=== PATIENT | male | born 1990 | race Caucasian/White ===

== ENCOUNTER → 2022-04-17 15:55 | Outpatient (CLI) | payer OTHER, SELFPAY ==
--- NOTE | 2022-04-17 15:57 | DI.MRI.S_ITS ---
PROCEDURE: MR KNEE LT WO CON INDICATIONS: Left Knee pain TECHNIQUE: Noncontrast sagittal PD fast spin echo and T2 fast spin echo with fat saturation, sagittal 3-D FLASH with fat saturation; coronal T1 spin echo and PD fast spin echo with fat saturation, and axial PD fast spin echo with fat saturation through the knee. COMPARISON: None. FINDINGS: Image quality: Excellent. Anterior Cruciate Ligament: Intact. Posterior Cruciate Ligament: Intact. Medial Collateral Ligament: Intact. Lateral Collateral Ligament: Intact. Medial Meniscus: Intact. Lateral Meniscus: Intact. Medial and Lateral Tendons: The semimembranosus tendon insertions and meniscocapsular junction appear intact. Visualized portions of the pes anserinus tendons appear normal. No abnormal bursal fluid. The long and short heads of the biceps femoris tendon appear intact. The popliteus tendon appears intact. No signs of posterolateral corner injury. Iliotibial band appears normal. Anterior Structures: Small enthesophyte is seen at the distal quadriceps tendon insertion. Mild distal patellar tendinosis. No femoral trochlear dysplasia or ventral trochlear prominence. No edema in the infrapatellar fat pad. Bones: No acute trabecular bone injury or fracture. Medial Femorotibial Cartilage: Intact. Lateral Femorotibial Cartilage: Intact. Patellofemoral Cartilage: Intact. Soft Tissues: There is a small joint effusion. No medial popliteal cyst. The musculature surrounding the knee is normal in bulk. Mild nonspecific subcutaneous soft tissue edema is seen at the anterior medial aspect of the knee. IMPRESSION: 1. No discrete meniscal tear. Cruciate and collateral ligaments are intact. There is no acute trabecular bone injury. 2. Mild distal patellar tendinosis. 3. Small joint effusion. Dictated by: Kvng Ocasio M.D. on 04/20/2022 at 8:42 Approved by: Kvng Ocasio M.D. on 04/20/2022 at 8:49
== END ==
PROVIDERS: Referring Provider Physician Assistant; Visit Provider Physician Assistant
DX: M25.562 Pain in left knee (principal); M25.462 Effusion, left knee
CPT/HCPCS: 73721

== ENCOUNTER 2022-05-06 10:21 | Emergency (ER) | payer OTHER, SELFPAY ==
[2022-05-06 11:11] VITALS: BP 130/86; PULSE 71; RESP 14; TEMP 36.3; O2SAT 99; BMI 39.9
[2022-05-06 11:45] LABS: Add Manual Diff / Slide Review NO; Basophils Absolute Auto 0 /uL (0-100); Basophils Percent Auto 0.5 % (0-2); Eosinophils Absolute Auto 100 /uL (0-450); Eosinophils Percent Auto 0.9 % (2-4); Hematocrit 41.9 % (41-53); Hemoglobin 14.3 g/dL (13.5-17.5); Lymphocytes Absolute Auto 1500 /uL (1100-4500); Lymphocytes Percent Auto 24.8 % (25-40); Mean Corpuscular HGB Conc 34.1 % (30-36); Mean Corpuscular Hemoglobin 28.1 PG (26-34); Mean Corpuscular Volume 82.3 fL (80-100); Monocytes Absolute Auto 500 /uL (0-900); Monocytes Percent Auto 8.6 % (3-14); Neutrophils Absolute Auto 3900 /uL (1500-7000); Neutrophils Percent Auto 65.2 % (50-75); Platelet Count 133 X10^3/uL (150-400); Red Blood Cell Count 5.09 X10^6/uL (4.5-5.9); White Blood Cell Count 6.1 X10^3/uL (4.5-11.0)
[2022-05-06 12:01] LABS: Alanine Aminotransferase 31 IU/L (<50); Albumin 4.5 g/dL (3.5-5.0); Albumin Globulin Ratio 1.2 (1.0-2.8); Alkaline Phosphatase 61 U/L (38-126); Aspartate Aminotransferase 30 IU/L (17-59); BUN Creatinine Ratio 17.4 (6-22); Bilirubin Total 0.7 mg/dL (0.2-1.3); Blood Urea Nitrogen 16 mg/dL (9-20); Calcium 9.4 mg/dL (8.4-10.2); Carbon Dioxide 27 mmol/L (22-32); Chloride 103 mmol/L (98-107); Estimated Glomerular Filt Rate > 60 mL/min (>60); Globulin 3.7 g/dL (1.7-4.1); Glucose 88 mg/dL (70-100); HEMOLYSIS 22 (0-50); Lipase 121 U/L (23-300); Potassium 4.6 mmol/L (3.4-5.1); Sodium 139 mmol/L (137-145); Total Protein 8.2 g/dL (6.3-8.2)
[2022-05-06 13:08] VITALS: BP 126/76; PULSE 80; O2SAT 98
--- NOTE | 2022-05-06 13:15 | DI.US.S_ITS ---
PROCEDURE: US ABDOMEN LIMITED INDICATIONS: RUQ pain TECHNIQUE: Real-time focused scanning was performed of the abdomen, with image documentation. COMPARISON: None. FINDINGS: Exam limited by patient body habitus. Normal hepatic parenchymal echogenicity and echotexture. No focal hepatic mass. No intrahepatic or extrahepatic biliary ductal dilatation. Normally distended gallbladder with no wall thickening or pericholecystic fluid. No shadowing gallstone or sludge identified. Pancreas obscured by bowel gas. IMPRESSION: Pancreas not visualized. Otherwise within normal limits. Dictated by: Sathish Barrientos M.D. on 05/06/2022 at 13:56 Approved by: Sathish Barrientos M.D. on 05/06/2022 at 13:57
--- NOTE | 2022-05-06 13:54 | ED_ITS ---
HPI - Abdominal Pain General Chief Complaint: Abdominal Pain Stated Complaint: bad abdominal pain Time Seen by Provider: 05/06/22 12:58 Source: patient Mode of arrival: Ambulatory History of Present Illness HPI narrative: This is a 32-year-old male who presents to the emergency department without significant medical history who presents to the emergency department complaining of right upper quadrant pain which he states started yesterday and was significantly tender this morning. He states he has not been able to eat food today due to his right upper quadrant pain, states his mother had a cholecystectomy recently. Patient sees the 10 it come [place], states that he feels nauseated and tender to the right upper quadrant. Endorses recent high fat meals. Denies any abdominal surgical history in the past. Denies taking any medication or having any allergies. Related Data Previous Rx's Medication Instructions Recorded amoxicillin 875 mg-potassium 1 tab PO BID 5 days #10 tabs 05/06/22 clavulanate 125 mg tablet Allergies Allergy/AdvReac Type Severity Reaction Status Date / Time No Known Drug Allergies Allergy Verified 05/06/22 11:10 Review of Systems Review of Systems Narrative: Review of systems is negative for acute abnormalities unless otherwise noted in HPI Patient History Social History Smoking Status: Unknown if ever smoked Smoking Status: Unknown if ever smoked alcohol intake frequency: holidays/special occasions only Substance Use Type: does not use Exam Narrative Exam Narrative: Reviewed vitals signs and nursing notes. General: cooperative, comfortable, in no acute distress, well groomed HEENT: symmetrical facial expressions, moist mucous membranes Cardiovascular: regular rate and rhythm, no peripheral edema, warm extremities Respiratory: normal effort, able to speak in complete sentences, without wheezing, stridor, or abnormal breath sounds. No retractions or tachypnea. GI: abdomen soft, right upper quadrant tenderness, denies distention currently, states last night it was mildly distended here, abdomen is without masses, rebound tenderness or exquisite tenderness with exam. Without CVA tenderness bilaterally MSK: moves all extremities, neurovascularly intact, no weakness, normal tone Skin: brisk capillary refill, without pallor or erythema Neuro: normal speech and cognition, A&O x3, ambulatory, clear speech Psych: mental status is grossly normal, congruent mood, normal affect, pleasant and cooperative Initial Vital Signs Initial Vital Signs: Vital Signs Temperature 97.4 F L 05/06/22 11:11 Pulse Rate 71 05/06/22 11:11 Respiratory Rate 14 05/06/22 11:11 Blood Pressure 130/86 05/06/22 11:11 Pulse Oximetry 99 05/06/22 11:11 Oxygen Delivery Method 05/06/22 11:11 Course Orders Ordered: ED Orders 05/06/22 11:20 EKG-12 Lead Stat 05/06/22 11:28 Complete Blood Count AUTO DIFF Stat Comprehensive Metabolic Panel Stat Lipase Stat 05/06/22 13:15 US abdomen limited Stat 05/06/22 14:48 CT abdomen pelvis w con Stat 05/06/22 15:21 UA dip and micro [Urinalysis and Microscopic] Stat Urine Culture Stat Discontinued Medications Amoxicillin/Clavulanate Potassium (Amoxicillin/Clav 875/125 Mg) 1 tab PO NOW ONE Stop: 05/06/22 15:57 Last Admin: 05/06/22 16:01 Dose: 1 tab Documented By: CRISTAL Ketorolac Tromethamine (Ketorolac 30 Mg/Ml Vial) 15 mg IV NOW ONE Stop: 05/06/22 14:53 Last Admin: 05/06/22 15:19 Dose: 15 mg Documented By: YUE Ondansetron HCl (Ondansetron 4 Mg/2 Ml Inj) 4 mg IV NOW ONE Stop: 05/06/22 14:53 Last Admin: 05/06/22 15:19 Dose: Not Given Documented By: YUE Vital Signs Vital signs: Vital Signs - 8 hr 05/06/22 11:11 05/06/22 13:08 05/06/22 16:10 Temperature 97.4 F L Pulse Rate 71 80 73 Respiratory Rate 14 16 Blood Pressure 130/86 126/76 123/72 Pulse Oximetry 99 98 100 Oxygen Delivery Method Room Air Room Air MDM - Abdominal Pain Lab Data Result diagrams: 05/06/22 11:28 05/06/22 11:28 Labs: Lab Results 05/06/22 05/06/22 05/06/22 Range/Units 11:28 11:28 15:21 WBC 6.1 (4.5-11.0) X10^3/uL RBC 5.09 (4.5-5.9) X10^6/uL Hgb 14.3 (13.5-17.5) g/dL Hct 41.9 (41-53) % MCV 82.3 (80-100) fL MCH 28.1 (26-34) PG MCHC 34.1 (30-36) % RDW 14.0 (11.6-14.8) % Plt Count 133 L (150-400) X10^3/uL Neut % (Auto) 65.2 (50-75) % Lymph % (Auto) 24.8 L (25-40) % [place] % (Auto) 8.6 (3-14) % Eos % (Auto) 0.9 L (2-4) % Baso % (Auto) 0.5 (0-2) % Neut # (Auto) 3900 (3440-3817) /uL Lymph # (Auto) 1500 (6890-4530) /uL [place] # (Auto) 500 (0-900) /uL Eos # (Auto) 100 (0-450) /uL Baso # (Auto) 0 (0-100) /uL Sodium 139 (137-145) mmol/L Potassium 4.6 (3.4-5.1) mmol/L Chloride 103 (98-107) mmol/L Carbon Dioxide 27 (22-32) mmol/L BUN 16 (9-20) mg/dL Creatinine 0.92 (0.66-1.25) mg/dL Estimated GFR > 60 (>60) mL/min BUN/Creatinine Ratio 17.4 (6-22) Glucose 88 (70-100) mg/dL Calcium 9.4 (8.4-10.2) mg/dL Total Bilirubin 0.7 (0.2-1.3) mg/dL AST 30 (17-59) IU/L ALT 31 (<50) IU/L Alkaline Phosphatase 61 (38-126) U/L Total Protein 8.2 (6.3-8.2) g/dL Albumin 4.5 (3.5-5.0) g/dL Globulin 3.7 (1.7-4.1) g/dL Albumin/Globulin Ratio 1.2 (1.0-2.8) Lipase 121 (23-300) U/L Urine Color Yellow Urine Appearance Clear Urine pH 6.5 (4.5-8.0) Ur Specific Shelly 1.015 (1.000-1.035) Urine Protein Negative (Negative) Urine Glucose (UA) Negative (Negative) g/dL Urine Ketones Negative (NEGATIVE) Urine Occult Blood Negative (Negative) Urine Nitrate Negative (Negative) Urine Bilirubin Negative (NEGATIVE) Urine Urobilinogen 0.2 (0.2) E.U./dL Ur Leukocyte Esterase Negative (NEGATIVE) Urine RBC None seen (0-5/HPF) Urine WBC 5-10/hpf H (0-5/HPF) Amorphous Sediment 1+ Urine Bacteria None seen (None) Urine Mucus 2+ H (Negative) Ur Culture Indicated? Specimen cultured Imaging Data US - abdomen: Radiologist's Impression: PROCEDURE: US ABDOMEN LIMITED ? INDICATIONS:? RUQ pain ? TECHNIQUE:? Real-time focused scanning was performed of the abdomen, with image documentation.? ? COMPARISON:? None. ? FINDINGS:? Exam limited by patient body habitus.? Normal hepatic parenchymal echogenicity and echotexture.? No focal hepatic mass.? No intrahepatic or extrahepatic biliary ductal dilatation.? Normally distended gallbladder with no wall thickening or pericholecystic fluid.? No shadowing gallstone or sludge identified.? Pancreas obscured by bowel gas. ? IMPRESSION:? Pancreas not visualized.? Otherwise within normal limits.? ? Dictated by: Sathish Barrientos M.D. on 05/06/2022 at 13:56 ? ? Approved by: Sathish Barrientos M.D. on 05/06/2022 at 13:57 ? CT scan - abdomen/pelvis: Radiologist's Impression: PROCEDURE:? CT ABDOMEN PELVIS W CON ? INDICATIONS:? RUQ pain, constipated, sharp pain ? TECHNIQUE:? After the administration of intravenous contrast, axial sections acquired from the lung bases to the pubic symphysis.? Coronal and sagittal reformats were performed.? For radiation dose reduction, the following was used:? automated exposure control, adjustment of mA and/or kV according to patient size.? ? COMPARISON:? None. ? FINDINGS:? Image quality:? Excellent.? ? Lung bases:? Unremarkable. Heart:? No significant findings. ? ABDOMEN: Liver:? Liver is normal in size.? Moderate hepatic steatosis is seen.? No discrete hepatic lesion. ? Gallbladder:? Gallbladder is within normal limits. Biliary ducts:? Unremarkable.? ? Pancreas:? Pancreas show normal enhancement.? Peripancreatic inflammatory changes adjacent to pancreatic tail is noted.? No peripancreatic fluid collection. Spleen:? There is splenomegaly, no discrete splenic lesion..? ? Adrenal Glands:? Unremarkable.? ? Kidneys and Ureters:? Unremarkable.? ? ? Stomach and Bowel:? Stomach, small bowel loops, and colon are unremarkable.? Appendix is visualized and is within normal limits. Peritoneum:? No abnormal intraperitoneal fluid.? No free air.? ? Ventral Wall: ? No hernias.? Abdominal Nodes:? No retroperitoneal or mesenteric adenopathy by size criteria.? Vessels:? Aorta and inferior vena cava are normal in size.? ? PELVIS: Pelvic Organs:? Unremarkable.? ? Bladder:? Unremarkable.? ? Pelvic Nodes: No enlarged lymph nodes.? Miscellaneous: No hernias are seen. ? ? ? Bones:? No suspicious bony lesion.? No acute vertebral body compression fracture. ? ? IMPRESSION:? 1. Inflammatory changes adjacent to pancreatic tail suggest clinical correlation for acute pancreatitis.? No pseudocyst formation. ? 2. Hepatic steatosis, no discrete hepatic lesion.? No biliary ductal dilatation.? No ? 3. Splenomegaly, no discrete splenic lesion. ? 4. No bowel obstruction or abnormal bowel wall thickening.? Normal appendix.? No free fluid or free air.? ? Dictated by: Jamie Castaneda M.D. on 05/06/2022 at 15:17 ? ? Approved by: Jamie Castaneda M.D. on 05/06/2022 at 15:20 ? [facility] Narrative Medical decision making narrative: This is a 32-year-old male without medical history presents to the emergency department for 2 days of right upper quadrant tenderness. Lab work is without leukocytosis or anemia, mild thrombocytopenia with a platelet count of 133 without priors to compare to, no electrolyte abnormalities, creatinine 0.92, no elevated liver enzymes or total bilirubin, lipase is 121. Abdominal ultrasound was limited by body habitus, without pancreas not visualized normally distended gallbladder without wall thickening pericholecystic fluid. Labs overall without any significant findings. CT abdomen is positive for inflammatory changes adjacent to the pancreatic tail suggesting acute pancreatitis without pseudocyst formation. His lipase was 121, his pain remains, he was given 15 mg of IV Toradol. Secondary impression shows hepatic steatosis without hepatic lesion, without biliary ductal dilatation, without splenomegaly or discrete splenic lesion, no bowel obstruction or abnormal bowel wall thickening, normal appendix, no free air or if he fluid. Discuss his findings with the patient, his history is suggest that he has had high fat meals recently and his pain and nausea had improved with NPO diet today. [facility], encouraged a clear liquid diet for the next 24-48 hours, NSAIDs. Patient is appropriate and amenable to discharge home. Vital signs are stable on repeat examination is unremarkable. Patient has been informed of results. Patient has been given strict return to ER precautions for any new or worsening symptoms. Patient understands to follow up closely with outpatient providers as instructed. Patient understands plan and agrees to discharge home. All questions and concerns answered at this time. Discharge Plan Departure Patient Disposition: Home Clinical Impression: Abdominal pain, RUQ, Fatty liver Acute pancreatitis Qualifiers: Pancreatitis type: unspecified pancreatitis type Acute pancreatitis compli cation: unspecified Qualified Code(s): K85.90 - Acute pancreatitis without necrosis or infection, unspecified Low back pain Qualifiers: Chronicity: acute Back pain laterality: bilateral Sciatica presence: without sciatica Qualified Code(s): M54.50 - Low back pain, unspecified Instructions: Acute Pancreatitis Activity Restrictions/Additional Instructions: *You have been diagnosed with pancreatitis. There is no infectious pocket of fluid so this should get better with anti-inflammatories, hydration, and a gradual return to diet. Please eat low-fat foods, avoid any fatty foods for the next 2 days, start with a clear liquid diet. Take ibuprofen 800 mg with food and water every 8 hours starting tomorrow night if your pain is bad again or tomorrow. You can take Tylenol 975 mg every 8 hours with this as needed. I hope you feel better soon, please follow-up with [facility] prior to returning to duty for resolution of this. If your pain gets worse or if you started vomiting, please return to the emergency department for another evaluation. *What to do: *Please continue to take your regular medications as directed. [ ] New medication prescriptions sent to your pharmacy: [ DOD] [ ] New medication written as a paper prescription [ x] No new medications given *Please follow up with your primary care provider in 2-3 days, call for an appointment. Let them know you were seen in the Emergency Department and that we asked that you be seen for follow-up. We will electronically transmit a record of today's note if your PCP is in our system *If you do not have a primary care provider please contact [phone] to establish care with one of the [facility] primary care providers. *Return to Emergency Department if you should have any new, worsening, or neftali rning symptoms, such as [fever greater than 101F, chills, worsening pain, persistent vomiting or other bothersome symptoms]. Prescriptions: New amoxicillin-pot clavulanate 875-125 mg tablet 1 tab PO BID 5 Days Qty: 10 0RF Referrals: ProviderRhona [Primary Care Provider] - Visit Report Forms: Patient Portal/API
--- NOTE | 2022-05-06 14:48 | DI.CT.S_ITS ---
PROCEDURE: CT ABDOMEN PELVIS W CON INDICATIONS: RUQ pain, constipated, sharp pain TECHNIQUE: After the administration of intravenous contrast, axial sections acquired from the lung bases to the pubic symphysis. Coronal and sagittal reformats were performed. For radiation dose reduction, the following was used: automated exposure control, adjustment of mA and/or kV according to patient size. COMPARISON: None. FINDINGS: Image quality: Excellent. Lung bases: Unremarkable. Heart: No significant findings. ABDOMEN: Liver: Liver is normal in size. Moderate hepatic steatosis is seen. No discrete hepatic lesion. Gallbladder: Gallbladder is within normal limits. Biliary ducts: Unremarkable. Pancreas: Pancreas show normal enhancement. Peripancreatic inflammatory changes adjacent to pancreatic tail is noted. No peripancreatic fluid collection. Spleen: There is splenomegaly, no discrete splenic lesion.. Adrenal Glands: Unremarkable. Kidneys and Ureters: Unremarkable. Stomach and Bowel: Stomach, small bowel loops, and colon are unremarkable. Appendix is visualized and is within normal limits. Peritoneum: No abnormal intraperitoneal fluid. No free air. Ventral Wall: No hernias. Abdominal Nodes: No retroperitoneal or mesenteric adenopathy by size criteria. Vessels: Aorta and inferior vena cava are normal in size. PELVIS: Pelvic Organs: Unremarkable. Bladder: Unremarkable. Pelvic Nodes: No enlarged lymph nodes. Miscellaneous: No hernias are seen. Bones: No suspicious bony lesion. No acute vertebral body compression fracture. IMPRESSION: 1. Inflammatory changes adjacent to pancreatic tail suggest clinical correlation for acute pancreatitis. No pseudocyst formation. 2. Hepatic steatosis, no discrete hepatic lesion. No biliary ductal dilatation. No 3. Splenomegaly, no discrete splenic lesion. 4. No bowel obstruction or abnormal bowel wall thickening. Normal appendix. No free fluid or free air. Dictated by: Jamie Castaneda M.D. on 05/06/2022 at 15:17 Approved by: Jamie Castaneda M.D. on 05/06/2022 at 15:20
[2022-05-06] MEDS: KETOROLAC 30 MG/ML VIAL 15 MG IV (15:19)
[2022-05-06 15:47] LABS: Appearance Urine UA CLEAR; Bilirubin Urine UA NEGATIVE (NEGATIVE); Color Urine UA YELLOW; Glucose Urine UA NEGATIVE (Negative); Ketones Urine UA NEGATIVE (NEGATIVE); Leukocyte Esterase Urine UA NEGATIVE (NEGATIVE); Nitrite Urine UA NEGATIVE (Negative); Occult Blood Urine UA NEGATIVE (Negative); Protein Urine UA NEGATIVE (Negative); Specific Gravity Urine UA 1.015 (1.000-1.035); Urobilinogen Urine UA 0.2 E.U./dL (0.2); pH Urine UA 6.5 (4.5-8.0)
[2022-05-06 15:50] LABS: Amorphous Sediment Urine 1+; RBC Urine None Seen (0-5/HPF); WBC Urine 5-10/HPF (0-5/HPF)
[2022-05-06 15:51] LABS: Bacteria Urine None Seen; Culture Indicated Urine Specimen Cultured; Mucus Urine 2+ (Negative)
[2022-05-06] MEDS: AMOXICILLIN/CLAV 875/125 MG 1 TAB PO (16:01)
[2022-05-06 16:10] VITALS: BP 123/72; PULSE 73; RESP 16; O2SAT 100
== END 2022-05-06 16:12 | disposition home or self-care (01) ==
PROVIDERS: Emergency Medicine; Emergency Provider Nurse Practitioner Critical Care Medicine
DX: K85.90 Acute pancreatitis without necrosis or infection, unspecified (principal); R10.11 Right upper quadrant pain; K76.0 Fatty (change of) liver, not elsewhere classified; M54.50 Low back pain, unspecified
CPT/HCPCS: 36415; 74177; 76705; 80053; 81001; 83690; 85025; 87086; 93005; 96374; 99284; J1885

== ENCOUNTER 2022-08-22 11:57 | Emergency (ER) | payer OTHER, SELFPAY ==
[2022-08-22] VITALS (17 sets, daily range): BP systolic 119–149; BP diastolic 62–98; PULSE 79–100; RESP 15–28; TEMP 36.7; O2SAT 89–100; BMI 41.3
[2022-08-22 12:16] LABS: Add Manual Diff / Slide Review NO; Basophils Absolute Auto 0 /uL (0-100); Basophils Percent Auto 0.8 % (0-2); Eosinophils Absolute Auto 100 /uL (0-450); Eosinophils Percent Auto 1.1 % (2-4); Hematocrit 41.4 % (41-53); Hemoglobin 14.5 g/dL (13.5-17.5); Lymphocytes Absolute Auto 1100 /uL (1100-4500); Lymphocytes Percent Auto 18.5 % (25-40); Mean Corpuscular Hemoglobin 28.2 PG (26-34); Mean Corpuscular Volume 80.6 fL (80-100); Monocytes Absolute Auto 400 /uL (0-900); Monocytes Percent Auto 6.9 % (3-14); Neutrophils Absolute Auto 4300 /uL (1500-7000); Neutrophils Percent Auto 72.7 % (50-75); Platelet Count 125 X10^3/uL (150-400); Red Blood Cell Count 5.13 X10^6/uL (4.5-5.9); Red Cell Distribution Width 15.2 % (11.6-14.8)
[2022-08-22 12:22] LABS: INR 1.1 (0.9-1.3); Prothrombin Time 12.9 SECONDS (10.1-12.7)
--- NOTE | 2022-08-22 12:23 | DI.RAD.S_ITS ---
PROCEDURE: XR CHEST 1V INDICATIONS: chest pain TECHNIQUE: One view of the chest was acquired. COMPARISON: None. FINDINGS: Surgical changes and devices: None. Lungs and pleura: Lungs are clear. No pleural effusions or pneumothorax. Mediastinum: Mediastinal contours appear normal. Heart size is normal. Bones and chest wall: No suspicious bony lesions. Overlying soft tissues appear unremarkable. IMPRESSION: No acute cardiopulmonary pathology. Dictated by: Jamie Castaneda M.D. on 08/22/2022 at 13:35 Approved by: Jamie Castaneda M.D. on 08/22/2022 at 13:36
[2022-08-22 12:28] LABS: Alanine Aminotransferase 33 IU/L (<50); Albumin 4.8 g/dL (3.5-5.0); Albumin Globulin Ratio 1.4 (1.0-2.8); Alkaline Phosphatase 72 U/L (38-126); Aspartate Aminotransferase 28 IU/L (17-59); BUN Creatinine Ratio 16.7 (6-22); Bilirubin Total 0.6 mg/dL (0.2-1.3); Blood Urea Nitrogen 17 mg/dL (9-20); Calcium 9.3 mg/dL (8.4-10.2); Carbon Dioxide 27 mmol/L (22-32); Chloride 100 mmol/L (98-107); Estimated Glomerular Filt Rate > 60 mL/min (>60); Globulin 3.5 g/dL (1.7-4.1); Glucose 97 mg/dL (70-100); HEMOLYSIS < 15 (0-50); Lipase 110 U/L (23-300); Potassium 4.3 mmol/L (3.4-5.1); Sodium 139 mmol/L (137-145); Total Protein 8.3 g/dL (6.3-8.2)
[2022-08-22] MEDS: SODIUM CHLORIDE 0.9% 1,000 ML 150 ML IV (12:30)
--- NOTE | 2022-08-22 12:31 | DI.CT.S_ITS ---
PROCEDURE: CT ABDOMEN PELVIS W CON INDICATIONS: upper abd pain/tender R, L, epigastric, Hx pancreatitis TECHNIQUE: After the administration of intravenous contrast, axial sections acquired from the lung bases to the pubic symphysis. Coronal and sagittal reformats were performed. For radiation dose reduction, the following was used: automated exposure control, adjustment of mA and/or kV according to patient size. COMPARISON: [facility], CT, CT ABDOMEN PELVIS W CON, 05/06/2022, 14:53. FINDINGS: Image quality: Excellent. Lung bases: Unremarkable. Heart: No significant findings. ABDOMEN: Liver: Liver is normal in size. Moderate hepatic steatosis is seen. No discrete hepatic lesion.. Gallbladder: Within normal limits. Biliary ducts: Unremarkable. Pancreas: Pancreas is normal in size. Mild peripancreatic inflammatory changes are again noted adjacent to tail of pancreas with subtle hypodense area involving pancreatic tail and may represent a small pancreatic cyst. No peripancreatic fluid collection.. Spleen: There is splenomegaly, no discrete splenic lesion.. Adrenal Glands: Unremarkable. Kidneys and Ureters: Unremarkable. Stomach and Bowel: There is no bowel obstruction. No gastric or small bowel wall thickening. Diffuse colonic wall thickening is seen particularly involving ascending colon and transverse colon. There is marrow Mon[place] the lumen. No significant pericolonic fat stranding. Appendix is visualized and is within normal limits. No abscess collection. Peritoneum: No abnormal intraperitoneal fluid. No free air. Ventral Wall: No hernias. Abdominal Nodes: No retroperitoneal or mesenteric adenopathy by size criteria. Vessels: Aorta and inferior vena cava are normal in size. PELVIS: Pelvic Organs: Unremarkable. Bladder: Unremarkable. Pelvic Nodes: No enlarged lymph nodes. Miscellaneous: No hernias are seen. Bones: No suspicious bony lesions. No acute vertebral body compression fracture. IMPRESSION: 1. Questionable mild peripancreatic inflammatory changes adjacent to pancreatic tail region with possible tiny pancreatic tail cyst. No discrete peripancreatic fluid collection. 2. Diffuse colonic wall thickening on the current study which may be due to under distension. Infectious inflammatory colitis cannot be excluded suggest clinical correlation. No bowel obstruction. No free fluid or free air. 3. Hepatic steatosis, no discrete hepatic lesion. Splenomegaly unchanged from prior study. Dictated by: Jamie Castaneda M.D. on 08/22/2022 at 13:31 Approved by: Jamie Castaneda M.D. on 08/22/2022 at 13:35
[2022-08-22] MEDS: ONDANSETRON 4 MG/2 ML INJ IV ×2 (12:32→15:23)
[2022-08-22] MEDS: fentaNYL 100 MCG/2 ML INJ 50 MCG IV ×2 (12:32→14:08)
[2022-08-22 12:37] LABS: Creatine Kinase 105 U/L (55-170)
--- NOTE | 2022-08-22 12:37 | ED_ITS ---
HPI - Abdominal Pain <Alexandrea Lancaster PA-C - Last Filed: 08/22/22 19:21> General Chief Complaint: Abdominal Pain Stated Complaint: Abd pain since this morning Time Seen by Provider: 08/22/22 12:04 History of Present Illness HPI narrative: 32 Year old male presents with concern for abdominal pain since around 5:00 a.m. this morning. Patient states that this generally feels similar to his episode in May where his pancreas was found to be slightly inflamed but he says this is ?worse?. He states he has been in 6 to 8/10 pain all morning since he got up he has been feeling nauseous and when he tries to drink water it makes him nauseous. He has not vomited but he is had multiple episodes of diarrhea that was watery and oily. He states that he was on the toilet for about 2 hours this morning with this. He says his pain is in a band across the top of his belly but it hurts more on the left/middle than anywhere else. Does not radiate to his back or anywhere else. Patient also notes that where he used to have intermittent issues with reflux over the past few weeks it has been a lot worse for him and he is having burning-type epigastric pain and pain in his chest after eating and drinking, for the last few weeks he has been sleeping propped up on pillows because if he lays flat it makes a reflux worse. He is not taken anything for this except Pepto-Bismol. He denies shortness of breath but says he has been having to regulate his breathing and focus on his breathing to control his pain. He does state that he has been having persistent problems with oily stool for the last few months and certain foods seem to make things worse so he has been changing his diet to try to adjust things. Uses Pepto- Bismol on a regular basis for abdominal discomfort and it works sometimes and does not work other times. Patient states he does not drink alcohol, the only medication he takes on a regular basis as Pepto-Bismol. He is not been taking [id number] pain meds. Denies persistent chest pain, vomiting, dizziness, palpitations, blood in his stool, mucus in his stool or any other symptoms. Related Data Previous Rx's Medication Instructions Recorded hydrocodone 5 mg-acetaminophen 325 1 tab PO Q6H PRN pain, pancreatic 08/22/22 mg tablet cyst 3 days #12 tabs omeprazole 20 mg capsule,delayed 20 mg PO DAILY #14 caps 08/22/22 release ondansetron 4 mg disintegrating 4 mg PO Q8H PRN nausea and 08/22/22 tablet vomiting 10 days #30 tabs Allergies Allergy/AdvReac Type Severity Reaction Status Date / Time No Known Drug Allergies Allergy Verified 05/06/22 11:10 Review of Systems <Alexandrea Lancaster PA-C - Last Filed: 08/22/22 19:21> Review of Systems Narrative: Unremarkable except as noted in the HPI Patient History <Alexandrea Lancaster PA-C - Last Filed: 08/22/22 19:21> Social History Smoking Status: Unknown if ever smoked Smoking Status: Unknown if ever smoked alcohol intake frequency: holidays/special occasions only Substance Use Type: does not use Exam <Alexandrea Lancaster PA-C - Last Filed: 08/22/22 19:21> Narrative Exam Narrative: GENERAL: 32 year old patient appears stated age. Obese, Well-developed patient, in moderate distress. HEAD: Atraumatic. Normocephalic. EYES: Pupils equal round and reactive. Extraocular motions intact. No scleral icterus. No injection or drainage. ENT: Nose without bleeding, purulent drainage. Airway patent. NECK: Trachea midline. Non tender CARDIOVASCULAR: Regular rate and rhythm without murmurs, gallops, or rubs. RESPIRATORY: Clear to auscultation. Breath sounds equal bilaterally. No wheezes, rales, or rhonchi. GASTROINTESTINAL: Abdomen soft, right upper quadrant epigastric and left upper quadrant tenderness exquisitely tender in the epigastric and left upper quadrant over the head of the pancreas. Otherwise mild generalized tenderness, nondistended, negative Rovsing, negative McBurney's point tenderness, Gilbert's sign is negative. EXTREMITIES: No edema or joint tenderness. BACK: Nontender without deformity or crepitance. No flank tenderness. NEURO: AOx3. SKIN: No rash or erythema of visible areas Initial Vital Signs Initial Vital Signs: Vital Signs Temperature 98.1 F 08/22/22 12:04 Pulse Rate 90 08/22/22 12:04 Respiratory Rate 16 08/22/22 12:04 Blood Pressure 144/89 H 08/22/22 12:04 Pulse Oximetry 99 08/22/22 12:04 Oxygen Delivery Method 08/22/22 12:04 <Jody Desai DO - Last Filed: 08/23/22 17:18> Initial Vital Signs Initial Vital Signs: Vital Signs Temperature 98.1 F 08/22/22 12:04 Pulse Rate 90 08/22/22 12:04 Respiratory Rate 16 08/22/22 12:04 Blood Pressure 144/89 H 08/22/22 12:04 Pulse Oximetry 99 08/22/22 12:04 Oxygen Delivery Method 08/22/22 12:04 Scores <Alexandrea Lancaster PA-C - Last Filed: 08/22/22 19:21> HEART Score Heart Score history: Slightly Suspicious Heart Score EKG: Normal Heart Score Age: < 45 years old Heart Score risk factors: 1-2 risk factors Heart Score troponin: < or = to normal limit Heart Score Total: 1 <Jody Desai DO - Last Filed: 08/23/22 17:18> HEART Score Heart Score Total: 1 Course <Alexandrea Lancaster PA-C - Last Filed: 08/22/22 19:21> Course Course Narrative: After exam and history obtaining cardiac labs as well as abdominal labs, concern for pancreatitis versus gallbladder versus cardiac etiology, more suspicious for abdominal etiology, also suspect this patient has been dealing with severe GERD/worsening reflux and Protonix is ordered. CT abdomen pelvis for further evaluation. Did discuss this patient with attending physician Dr. Desai. 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 Again patient's lipase was unremarkable today. Did get additional fentanyl for persistent pain 6/10, another fluid bolus has been ordered, stool study also ordered d/t persistent stool changes, diarrhea and colitis on CT. 14:15 Did discuss this pt with Dr. Desai, anticipate sending home with follow up. 14:33 Patient did have improvement with the 2nd dose of fentanyl but is now back in 8/10 pain. Also feeling nauseous again. We will do additional meds for nausea and stronger pain medicine, Dilaudid did talk to the patient about the fact that we likely anticipate discharging him later today and that he will need to find another ride home as it is not safe for him to drive with pain meds on board. He is willing to make some calls to make this happen. 15:15 Orders Ordered: Discontinued Medications Fentanyl (Fentanyl 100 Mcg/2 Ml Inj) 50 mcg IV NOW ONE Stop: 08/22/22 12:24 Last Admin: 08/22/22 12:32 Dose: 50 mcg Documented By: JOSE JUAN Fentanyl (Fentanyl 100 Mcg/2 Ml Inj) 50 mcg IV NOW ONE Stop: 08/22/22 14:07 Last Admin: 08/22/22 14:08 Dose: 50 mcg Documented By: JOSE JUAN Hydromorphone HCl (Hydromorphone 1 Mg Inj) 1 mg IV NOW ONE Stop: 08/22/22 15:14 Last Admin: 08/22/22 15:23 Dose: 1 mg Documented By: JOSE JUAN Sodium Chloride (Normal Saline 0.9%) 1,000 mls @ 150 mls/hr IV CONT BIANCA Last Infusion: 08/22/22 13:00 Dose: 0 mls/hr Documented By: JOSE JUAN Admin: 08/22/22 12:30 Dose: 150 mls/hr Documented By: JOSE JUAN Sodium Chloride (Normal Saline 0.9%) 1,000 mls @ 1,000 mls/hr IV BOLUS ONE Stop: 08/22/22 13:35 Last Infusion: 08/22/22 14:09 Dose: 0 mls/hr Documented By: JOSE JUAN Admin: 08/22/22 13:07 Dose: 1,000 mls/hr Documented By: JOSE JUAN Sodium Chloride (Normal Saline 0.9%) 1,000 mls @ 1,000 mls/hr IV BOLUS ONE Stop: 08/22/22 15:14 Last Infusion: 08/22/22 15:33 Dose: 0 mls/hr Documented By: JOSE JUAN Admin: 08/22/22 14:17 Dose: 1,000 mls/hr Documented By: JOSE JUAN Metoclopramide HCl (Metoclopramide 10 Mg/2 Ml Inj) 10 mg IV NOW ONE Stop: 08/22/22 15:14 Last Admin: 08/22/22 15:23 Dose: 10 mg Documented By: JOSE JUAN Naloxone HCl (Naloxone 0.4 Mg/Ml Vial) 0.2 mg IV NOW ONE Stop: 08/22/22 17:25 Last Admin: 08/22/22 17:27 Dose: 0.2 mg Documented By: JOSE JUAN Ondansetron HCl (Ondansetron 4 Mg/2 Ml Inj) 4 mg IV NOW PRN PRN Reason: Nausea And Vomiting Last Admin: 08/22/22 12:32 Dose: 4 mg Documented By: JOSE JUAN Ondansetron HCl (Ondansetron 4 Mg/2 Ml Inj) 4 mg IV NOW ONE Stop: 08/22/22 15:12 Last Admin: 08/22/22 15:23 Dose: 4 mg Documented By: JOSE JUAN Pantoprazole Sodium (Pantoprazole 40 Mg Vial) 40 mg IV NOW ONE Stop: 08/22/22 12:38 Last Admin: 08/22/22 13:07 Dose: 40 mg Documented By: JOSE JUAN Vital Signs Vital signs: Vital Signs - 8 hr 08/22/22 12:04 08/22/22 12:25 08/22/22 12:30 Temperature 98.1 F Pulse Rate 90 81 Respiratory Rate 16 Blood Pressure 144/89 H 149/97 H Pulse Oximetry 99 98 Oxygen Delivery Method Room Air 08/22/22 12:30 08/22/22 13:00 08/22/22 13:00 Temperature Pulse Rate 81 81 Respiratory Rate Blood Pressure 141/80 H Pulse Oximetry 98 98 Oxygen Delivery Method Room Air 08/22/22 13:30 08/22/22 13:48 08/22/22 13:48 Temperature Pulse Rate 90 85 Respiratory Rate Blood Pressure 132/98 H Pulse Oximetry 97 99 Oxygen Delivery Method 08/22/22 14:00 08/22/22 14:00 08/22/22 14:30 Temperature Pulse Rate 86 Respiratory Rate Blood Pressure 134/90 123/75 Pulse Oximetry 100 Oxygen Delivery Method 08/22/22 14:30 08/22/22 15:00 08/22/22 15:30 Temperature Pulse Rate 84 97 H Respiratory Rate Blood Pressure 139/84 Pulse Oximetry 97 100 Oxygen Delivery Method 08/22/22 15:30 08/22/22 16:00 08/22/22 16:00 Temperature Pulse Rate 100 H 79 Respiratory Rate Blood Pressure 133/80 Pulse Oximetry 99 96 Oxygen Delivery Method Room Air 08/22/22 16:30 08/22/22 16:30 08/22/22 17:00 Temperature Pulse Rate 97 H Respiratory Rate Blood Pressure 129/67 126/62 Pulse Oximetry 89 L Oxygen Delivery Method Room Air 08/22/22 17:00 08/22/22 17:30 08/22/22 17:30 Temperature Pulse Rate 88 92 H Respiratory Rate 28 H 16 Blood Pressure 132/79 Pulse Oximetry 100 96 Oxygen Delivery Method 08/22/22 18:00 08/22/22 18:00 08/22/22 18:30 Temperature Pulse Rate 86 Respiratory Rate 17 Blood Pressure 130/73 122/73 Pulse Oximetry 94 Oxygen Delivery Method 08/22/22 18:30 08/22/22 19:00 08/22/22 19:00 Temperature Pulse Rate 84 84 Respiratory Rate 15 17 Blood Pressure 119/73 Pulse Oximetry 92 94 Oxygen Delivery Method <Jody Desai DO - Last Filed: 08/23/22 17:18> Orders Ordered: Discontinued Medications Fentanyl (Fentanyl 100 Mcg/2 Ml Inj) 50 mcg IV NOW ONE Stop: 08/22/22 12:24 Last Admin: 08/22/22 12:32 Dose: 50 mcg Documented By: JOSE JUAN Fentanyl (Fentanyl 100 Mcg/2 Ml Inj) 50 mcg IV NOW ONE Stop: 08/22/22 14:07 Last Admin: 08/22/22 14:08 Dose: 50 mcg Documented By: JOSE JUAN Hydromorphone HCl (Hydromorphone 1 Mg Inj) 1 mg IV NOW ONE Stop: 08/22/22 15:14 Last Admin: 08/22/22 15:23 Dose: 1 mg Documented By: JOSE JUAN Sodium Chloride (Normal Saline 0.9%) 1,000 mls @ 150 mls/hr IV CONT BIANCA Last Infusion: 08/22/22 13:00 Dose: 0 mls/hr Documented By: JOSE JUAN Admin: 08/22/22 12:30 Dose: 150 mls/hr Documented By: JOSE JUAN Sodium Chloride (Normal Saline 0.9%) 1,000 mls @ 1,000 mls/hr IV BOLUS ONE Stop: 08/22/22 13:35 Last Infusion: 08/22/22 14:09 Dose: 0 mls/hr Documented By: JOSE JUAN Admin: 08/22/22 13:07 Dose: 1,000 mls/hr Documented By: JOSE JUAN Sodium Chloride (Normal Saline 0.9%) 1,000 mls @ 1,000 mls/hr IV BOLUS ONE Stop: 08/22/22 15:14 Last Infusion: 08/22/22 15:33 Dose: 0 mls/hr Documented By: JOSE JUAN Admin: 08/22/22 14:17 Dose: 1,000 mls/hr Documented By: JOSE JUAN Metoclopramide HCl (Metoclopramide 10 Mg/2 Ml Inj) 10 mg IV NOW ONE Stop: 08/22/22 15:14 Last Admin: 08/22/22 15:23 Dose: 10 mg Documented By: JOSE JUAN Naloxone HCl (Naloxone 0.4 Mg/Ml Vial) 0.2 mg IV NOW ONE Stop: 08/22/22 17:25 Last Admin: 08/22/22 17:27 Dose: 0.2 mg Documented By: JOSE JUAN Ondansetron HCl (Ondansetron 4 Mg/2 Ml Inj) 4 mg IV NOW PRN PRN Reason: Nausea And Vomiting Last Admin: 08/22/22 12:32 Dose: 4 mg Documented By: JOSE JUAN Ondansetron HCl (Ondansetron 4 Mg/2 Ml Inj) 4 mg IV NOW ONE Stop: 08/22/22 15:12 Last Admin: 08/22/22 15:23 Dose: 4 mg Documented By: JOSE JUAN Pantoprazole Sodium (Pantoprazole 40 Mg Vial) 40 mg IV NOW ONE Stop: 08/22/22 12:38 Last Admin: 08/22/22 13:07 Dose: 40 mg Documented By: JOS EJUAN Vital Signs Vital signs: Vital Signs - 8 hr 08/22/22 12:04 08/22/22 12:25 08/22/22 12:30 Temperature 98.1 F Pulse Rate 90 81 Respiratory Rate 16 Blood Pressure 144/89 H 149/97 H Pulse Oximetry 99 98 Oxygen Delivery Method Room Air 08/22/22 12:30 08/22/22 13:00 08/22/22 13:00 Temperature Pulse Rate 81 81 Respiratory Rate Blood Pressure 141/80 H Pulse Oximetry 98 98 Oxygen Delivery Method Room Air 08/22/22 13:30 08/22/22 13:48 08/22/22 13:48 Temperature Pulse Rate 90 85 Respiratory Rate Blood Pressure 132/98 H Pulse Oximetry 97 99 Oxygen Delivery Method 08/22/22 14:00 08/22/22 14:00 08/22/22 14:30 Temperature Pulse Rate 86 Respiratory Rate Blood Pressure 134/90 123/75 Pulse Oximetry 100 Oxygen Delivery Method 08/22/22 14:30 08/22/22 15:00 08/22/22 15:30 Temperature Pulse Rate 84 97 H Respiratory Rate Blood Pressure 139/84 Pulse Oximetry 97 100 Oxygen Delivery Method 08/22/22 15:30 08/22/22 16:00 08/22/22 16:00 Temperature Pulse Rate 100 H 79 Respiratory Rate Blood Pressure 133/80 Pulse Oximetry 99 96 Oxygen Delivery Method Room Air 08/22/22 16:30 08/22/22 16:30 08/22/22 17:00 Temperature Pulse Rate 97 H Respiratory Rate Blood Pressure 129/67 126/62 Pulse Oximetry 89 L Oxygen Delivery Method Room Air 08/22/22 17:00 08/22/22 17:30 08/22/22 17:30 Temperature Pulse Rate 88 92 H Respiratory Rate 28 H 16 Blood Pressure 132/79 Pulse Oximetry 100 96 Oxygen Delivery Method 08/22/22 18:00 08/22/22 18:00 08/22/22 18:30 Temperature Pulse Rate 86 Respiratory Rate 17 Blood Pressure 130/73 122/73 Pulse Oximetry 94 Oxygen Delivery Method 08/22/22 18:30 08/22/22 19:00 08/22/22 19:00 Temperature Pulse Rate 84 84 Respiratory Rate 15 17 Blood Pressure 119/73 Pulse Oximetry 92 94 Oxygen Delivery Method MDM - Abdominal Pain <Alexandrea Lancaster PA-C - Last Filed: 08/22/22 19:21> Differential Diagnosis Differential diagnosis: Likely abdominal pain, pancreatitis (pancreatic tail cyst) and other (diarrhea, colitis) Lab Data 08/22/22 12:05 08/22/22 12:05 Labs: Lab Results 08/22/22 08/22/22 08/22/22 Range/Units 12:05 12:05 12:05 WBC 6.0 (4.5-11.0) X10^3/uL RBC 5.13 (4.5-5.9) X10^6/uL Hgb 14.5 (13.5-17.5) g/dL Hct 41.4 (41-53) % MCV 80.6 (80-100) fL MCH 28.2 (26-34) PG MCHC 35.0 (30-36) % RDW 15.2 H (11.6-14.8) % Plt Count 125 L (150-400) X10^3/uL Neut % (Auto) 72.7 (50-75) % Lymph % (Auto) 18.5 L (25-40) % [place] % (Auto) 6.9 (3-14) % Eos % (Auto) 1.1 L (2-4) % Baso % (Auto) 0.8 (0-2) % Neut # (Auto) 4300 (1884-3287) /uL Lymph # (Auto) 1100 (8153-1795) /uL [place] # (Auto) 400 (0-900) /uL Eos # (Auto) 100 (0-450) /uL Baso # (Auto) 0 (0-100) /uL PT 12.9 H (10.1-12.7) SECONDS INR 1.1 (0.9-1.3) Sodium 139 (137-145) mmol/L Potassium 4.3 (3.4-5.1) mmol/L Chloride 100 (98-107) mmol/L Carbon Dioxide 27 (22-32) mmol/L BUN 17 (9-20) mg/dL Creatinine 1.02 (0.66-1.25) mg/dL Estimated GFR > 60 (>60) mL/min BUN/Creatinine Ratio 16.7 (6-22) Glucose 97 (70-100) mg/dL Lactate (0.7-2.1) mmol/L Calcium 9.3 (8.4-10.2) mg/dL Total Bilirubin 0.6 (0.2-1.3) mg/dL AST 28 (17-59) IU/L ALT 33 (<50) IU/L Alkaline Phosphatase 72 (38-126) U/L Total Creatine Kinase (55-170) U/L CK-MB (CK-2) (<2.37) ng/mL CK-MB (CK-2) Rel Index (1.5-5.0) % Troponin I (0.01-0.034) ng/mL Total Protein 8.3 H (6.3-8.2) g/dL Albumin 4.8 (3.5-5.0) g/dL Globulin 3.5 (1.7-4.1) g/dL Albumin/Globulin Ratio 1.4 (1.0-2.8) Lipase 110 (23-300) U/L 08/22/22 08/22/22 Range/Units 12:05 12:05 WBC (4.5-11.0) X10^3/uL RBC (4.5-5.9) X10^6/uL Hgb (13.5-17.5) g/dL Hct (41-53) % MCV (80-100) fL MCH (26-34) PG MCHC (30-36) % RDW (11.6-14.8) % Plt Count (150-400) X10^3/uL Neut % (Auto) (50-75) % Lymph % (Auto) (25-40) % [place] % (Auto) (3-14) % Eos % (Auto) (2-4) % Baso % (Auto) (0-2) % Neut # (Auto) (2108-5343) /uL Lymph # (Auto) (6012-7093) /uL [place] # (Auto) (0-900) /uL Eos # (Auto) (0-450) /uL Baso # (Auto) (0-100) /uL PT (10.1-12.7) SECONDS INR (0.9-1.3) Sodium (137-145) mmol/L Potassium (3.4-5.1) mmol/L Chloride (98-107) mmol/L Carbon Dioxide (22-32) mmol/L BUN (9-20) mg/dL Creatinine (0.66-1.25) mg/dL Estimated GFR (>60) mL/min BUN/Creatinine Ratio (6-22) Glucose (70-100) mg/dL Lactate 1.3 (0.7-2.1) mmol/L Calcium (8.4-10.2) mg/dL Total Bilirubin (0.2-1.3) mg/dL AST (17-59) IU/L ALT (<50) IU/L Alkaline Phosphatase (38-126) U/L Total Creatine Kinase 105 (55-170) U/L CK-MB (CK-2) < 0.22 (<2.37) ng/mL CK-MB (CK-2) Rel Index 0.2 L (1.5-5.0) % Troponin I < 0.012 (0.01-0.034) ng/mL Total Protein (6.3-8.2) g/dL Albumin (3.5-5.0) g/dL Globulin (1.7-4.1) g/dL Albumin/Globulin Ratio (1.0-2.8) Lipase (23-300) U/L Point of care testing: Urine Dip Bedside Urine Glucose Negative Bedside Urine Bilirubin - Negative Bedside Urine Ketone - Negative Urine Specific [place] 1.010 Bedside Urine Occult Blood - Negative Bedside Urine pH 6.0 Bedside Urine Protein - Negative Bedside Urine Urobilinogen - Negative Bedside Urine Nitrite - Negative Bedside Urine Leukocytes - Negative Esterase Imaging Data Chest x-ray: Radiologist's Impression: [address] [address] XRay Report Signed Patient: Zoltan Farah MR#: [id number] : 1990 Acct:[id number] Age/Sex: 32 / M Date of Service: 08/22/22 Loc: ED Accession Number: [id number] ?? Procedure: XR chest 1V Ordering Provider: Alexandrea Lancaster P.A-C PROCEDURE:? XR CHEST 1V ? INDICATIONS:? chest pain ? TECHNIQUE:? One view of the chest was acquired.? ? COMPARISON:? None. ? FINDINGS:? ? Surgical changes and devices:? None.? ? Lungs and pleura:? Lungs are clear.? No pleural effusions or pneumothorax.? ? Mediastinum:? Mediastinal contours appear normal.? Heart size is normal.? ? Bones and chest wall:? No suspicious bony lesions.? Overlying soft tissues appear unremarkable.? ? IMPRESSION:? No acute cardiopulmonary pathology. ? ? Dictated by: Jamie Castaneda M.D. on 08/22/2022 at 13:35 ? ? Approved by: Jamie Castaneda M.D. on 08/22/2022 at 13:36?? CT scan - abdomen/pelvis: Radiologist's Impression: [address] [address] [address] Scan Report Signed Patient: Zoltan Farah MR#: [id number] : 1990 Acct:[id number] Age/Sex: 32 / M Date of Service: 08/22/22 Loc: ED Accession Number: [id number] ?? Procedure: CT abdomen pelvis w con Ordering Provider: Tonny,Alexandrea P.A-C PROCEDURE:? CT ABDOMEN PELVIS W CON ? INDICATIONS:? upper abd pain/tender R, L, epigastric, Hx pancreatitis ? TECHNIQUE:? After the administration of intravenous contrast, axial sections acquired from the lung bases to the pubic symphysis.? Coronal and sagittal reformats were performed.? For radiation dose reduction, the following was used:? automated exposure control, adjustment of mA and/or kV according to patient size.? ? COMPARISON:? [facility], CT, CT ABDOMEN PELVIS W CON, 05/06/2022, 14:53. ? FINDINGS:? Image quality:? Excellent.? ? Lung bases:? Unremarkable. Heart:? No significant findings. ? ABDOMEN: Liver:? Liver is normal in size.? Moderate hepatic steatosis is seen.? No discrete hepatic lesion..? ? Gallbladder:? Within normal limits. Biliary ducts:? Unremarkable.? ? Pancreas:? Pancreas is normal in size.? Mild peripancreatic inflammatory changes are again noted adjacent to tail of pancreas with subtle hypodense area involving pancreatic tail and may represent a small pancreatic cyst.? No peripancreatic fluid collection..? ? Spleen:? There is splenomegaly, no discrete splenic lesion..? ? Adrenal Glands:? Unremarkable.? ? Kidneys and Ureters:? Unremarkable.? ? ? Stomach and Bowel:? There is no bowel obstruction.? No gastric or small bowel wall thickening.? Diffuse colonic wall thickening is seen particularly involving ascending colon and transverse colon.? There is marrow Js the lumen.? No significant pericolonic fat stranding.? Appendix is visualized and is within normal limits.? No abscess collection. Peritoneum:? No abnormal intraperitoneal fluid.? No free air.? ? Ventral Wall: ? No hernias.? Abdominal Nodes:? No retroperitoneal or mesenteric adenopathy by size criteria.? Vessels:? Aorta and inferior vena cava are normal in size.? ? PELVIS: Pelvic Organs:? Unremarkable.? ? Bladder:? Unremarkable.? ? Pelvic Nodes: No enlarged lymph nodes.? Miscellaneous: No hernias are seen. ? ? ? Bones:? No suspicious bony lesions.? No acute vertebral body compression fracture. ? ? IMPRESSION:? 1. Questionable mild peripancreatic inflammatory changes adjacent to pancreatic tail region with possible tiny pancreatic tail cyst.? No discrete peripancreatic fluid collection. ? 2. Diffuse colonic wall thickening on the current study which may be due to under distension.? Infectious inflammatory colitis cannot be excluded suggest clinical correlation.? No bowel obstruction.? No free fluid or free air. ? 3. Hepatic steatosis, no discrete hepatic lesion.? Splenomegaly unchanged from prior study.? ? ? Dictated by: Jaime Castaneda M.D. on 08/22/2022 at 13:31 ? ? Approved by: Jamie Castaneda M.D. on 08/22/2022 at 13:35?? ECG Data Attestation: I personally reviewed and interpreted this ECG as follows: Interpretation: Heart rate 82, normal sinus rhythm T-wave inversions lead V1 and 3 otherwise unremarkable EKG 1 PJC noted, otherwise no ectopy EKG was also reviewed by attending physician Dr Desai Treatment and Disposition Shared decision making:: shared decision making was used in the course of this patient's care treatment and plan for discharge in the emergency department. MDM Narrative Medical decision making narrative: Obese 32-year-old male with history of previous pancreatic mild inflammation and pain presents with concern for upper abdominal pain severe since this morning at around 5:00 a.m. as well as multiple episodes of loose stools this morning. Labs obtained today do not show suggestion of infection or biliary pathology, lipase is not elevated. Lactate is also checked in his also not elevated. Patient is quite tender on exam initially and imaging is obtained for further evaluation CT abdomen pelvis with contrast. This does show pancreatic tail inflammation and a small pancreatic tail cyst. This is likely the culprit of this patient's pain. However he did also endorse chronic issues with GERD/reflux which have been worsening the past few weeks. On initial presen tation he was provided with Protonix. This did not help his pain however fentanyl x2 50 mcg was helpful. His pain returned and he was given Dilaudid as well as additional antiemetics for pain control and nausea. Patient did not have any vomiting during his emergency department stay but did have episodes of nausea. Did discuss this patient with emergency department attending who was involved in his care during his stay in the emergency department. No signs of sepsis, infection or surgical emergency based on labs history exam and CT. Cardiac workup was also done given his upper abdominal pain and this was unremarkable. About an hour after receiving Dilaudid patient did complain that he felt his breathing was off and he had to focus on it and it slowed down if he was not paying attention. He was placed on a capnography monitor and we did see sats lowering occasionally and he received a small dose of Narcan 0.2mg which did improve his symptoms and his sats. Did discuss with the patient the plan for outpatient management and close follow-up with PCP. Suspect the patient is very opioid naive and did not tolerate the 1mg of Dilaudid well. Patient was feeling overall much better upon discharge. Prescription for Zofran, hydrocodone. Return precautions provided, follow-up plan discussed, all questions answered. <Jody Desai, DO - Last Filed: 08/23/22 17:18> Lab Data Labs: Lab Results 08/22/22 08/22/22 08/22/22 Range/Units 12:05 12:05 12:05 WBC 6.0 (4.5-11.0) X10^3/uL RBC 5.13 (4.5-5.9) X10^6/uL Hgb 14.5 (13.5-17.5) g/dL Hct 41.4 (41-53) % MCV 80.6 (80-100) fL MCH 28.2 (26-34) PG MCHC 35.0 (30-36) % RDW 15.2 H (11.6-14.8) % Plt Count 125 L (150-400) X10^3/uL Neut % (Auto) 72.7 (50-75) % Lymph % (Auto) 18.5 L (25-40) % [place] % (Auto) 6.9 (3-14) % Eos % (Auto) 1.1 L (2-4) % Baso % (Auto) 0.8 (0-2) % Neut # (Auto) 4300 (0279-2494) /uL Lymph # (Auto) 1100 (9002-2927) /uL [place] # (Auto) 400 (0-900) /uL Eos # (Auto) 100 (0-450) /uL Baso # (Auto) 0 (0-100) /uL PT 12.9 H (10.1-12.7) SECONDS INR 1.1 (0.9-1.3) Sodium 139 (137-145) mmol/L Potassium 4.3 (3.4-5.1) mmol/L Chloride 100 (98-107) mmol/L Carbon Dioxide 27 (22-32) mmol/L BUN 17 (9-20) mg/dL Creatinine 1.02 (0.66-1.25) mg/dL Estimated GFR > 60 (>60) mL/min BUN/Creatinine Ratio 16.7 (6-22) Glucose 97 (70-100) mg/dL Lactate (0.7-2.1) mmol/L Calcium 9.3 (8.4-10.2) mg/dL Total Bilirubin 0.6 (0.2-1.3) mg/dL AST 28 (17-59) IU/L ALT 33 (<50) IU/L Alkaline Phosphatase 72 (38-126) U/L Total Creatine Kinase (55-170) U/L CK-MB (CK-2) (<2.37) ng/mL CK-MB (CK-2) Rel Index (1.5-5.0) % Troponin I (0.01-0.034) ng/mL Total Protein 8.3 H (6.3-8.2) g/dL Albumin 4.8 (3.5-5.0) g/dL Globulin 3.5 (1.7-4.1) g/dL Albumin/Globulin Ratio 1.4 (1.0-2.8) Lipase 110 (23-300) U/L 08/22/22 08/22/22 Range/Units 12:05 12:05 WBC (4.5-11.0) X10^3/uL RBC (4.5-5.9) X10^6/uL Hgb (13.5-17.5) g/dL Hct (41-53) % MCV (80-100) fL MCH (26-34) PG MCHC (30-36) % RDW (11.6-14.8) % Plt Count (150-400) X10^3/uL Neut % (Auto) (50-75) % Lymph % (Auto) (25-40) % [place] % (Auto) (3-14) % Eos % (Auto) (2-4) % Baso % (Auto) (0-2) % Neut # (Auto) (9461-3310) /uL Lymph # (Auto) (0203-7575) /uL [place] # (Auto) (0-900) /uL Eos # (Auto) (0-450) /uL Baso # (Auto) (0-100) /uL PT (10.1-12.7) SECONDS INR (0.9-1.3) Sodium (137-145) mmol/L Potassium (3.4-5.1) mmol/L Chloride (98-107) mmol/L Carbon Dioxide (22-32) mmol/L BUN (9-20) mg/dL Creatinine (0.66-1.25) mg/dL Estimated GFR (>60) mL/min BUN/Creatinine Ratio (6-22) Glucose (70-100) mg/dL Lactate 1.3 (0.7-2.1) mmol/L Calcium (8.4-10.2) mg/dL Total Bilirubin (0.2-1.3) mg/dL AST (17-59) IU/L ALT (<50) IU/L Alkaline Phosphatase (38-126) U/L Total Creatine Kinase 105 (55-170) U/L CK-MB (CK-2) < 0.22 (<2.37) ng/mL CK-MB (CK-2) Rel Index 0.2 L (1.5-5.0) % Troponin I < 0.012 (0.01-0.034) ng/mL Total Protein (6.3-8.2) g/dL Albumin (3.5-5.0) g/dL Globulin (1.7-4.1) g/dL Albumin/Globulin Ratio (1.0-2.8) Lipase (23-300) U/L Point of care testing: Urine Dip Bedside Urine Glucose Negative Bedside Urine Bilirubin - Negative Bedside Urine Ketone - Negative Urine Specific [place] 1.010 Bedside Urine Occult Blood - Negative Bedside Urine pH 6.0 Bedside Urine Protein - Negative Bedside Urine Urobilinogen - Negative Bedside Urine Nitrite - Negative Bedside Urine Leukocytes - Negative Esterase ECG Data Interpretation: Heart rate 82, normal sinus rhythm T-wave inversions lead V1 and 3 otherwise unremarkable EKG 1 PJC noted, otherwise no ectopy EKG was also reviewed by attending physician Dr Giselle Desai-sinus rhythm rate 82 NC interval 150 QRS [address] changes similar to previous EKGs Discharge Plan Departure Patient Disposition: Home Clinical Impression: Pancreas cyst, Acute upper abdominal pain, Acid reflux Instructions: DI for Pancreatitis Activity Restrictions/Additional Instructions: Thank you for letting us be part of her care today in the emergency department. Your labs today were actually looking good, however duty or new pain and symptoms we did do a CT scan. This does show inflammation again around the tail of her pancreas similar to last fall, however the radiologist does think that there may be a small cyst present as well. This is likely cause of your pain. You did have some inflammation noted possibly consistent with a colitis or inflammation of your bowel/colon and I suspect this is related to the diarrhea that you have had recently. I do want you to follow-up closely with your primary care provider, you may want to see surgery as an outpatient although your pancreatic cyst is not typically something that surgeries performed on they may be able to help you with recommendations and management. You can take Tylenol and ibuprofen as needed for pain although I recommend not taking too much ibuprofen given you have some reflux symptoms as well. I have prescribed some medication for reflux as well as some pain medicine for a few days and some nausea medicine. If you develop severe worsening constant pain, or unable to tolerate food or fluids, have persistent vomiting or diarrhea or develop fevers in the setting of any of these you should get re-evaluated. There is no evidence of an emergent or life threatening illness at this time, but follow up with your doctor in 1-2 days is recommended nonetheless to continue to rule out serious underlying causes of your symptoms. Please call the office for an appointment. Please return to the Emergency Department for any worsening or persistent symptoms. Please take medications as directed. Prescriptions: New hydrocodone-acetaminophen 5-325 mg tablet 1 tab PO Q6H PRN (Reason: pain, pancreatic cyst) 3 Days Qty: 12 0RF ondansetron 4 mg tablet,disintegrating 4 mg PO Q8H PRN (Reason: nausea and vomiting) 10 Days Qty: 30 1RF omeprazole 20 mg capsule,delayed release(DR/EC) 20 mg PO DAILY Qty: 14 0RF Referrals: Provider,Rhona MARTÍNEZ [Primary Care Provider] - Stand Alone Forms: Patient Portal/API <Jody Dseai DO - Last Filed: 08/23/22 17:18> Cosign ED Attending Cosignature Attestation: Son evaluated patient myself. Mildly tender in epigastric region. Blood work is overall reassuring without elevated lipase. CT does show some inflammatory area on the pancreas with pancreatic cyst. Heavy seems to be tolerating fluids. Fentanyl did not help much with pain he is given 1 mg of Dilaudid. He actually became quite sleepy and little hypoxic he required 0.2 mg of Dilaudid which helped. He was then monitored for 90 minutes. Discussed with him warning signs. He was given Zofran and pain medications at home. And strict return precautions I was immediately available in the department for consultation. Documentation has been reviewed.
[2022-08-22 12:50] LABS: Troponin I < 0.012 ng/mL (0.01-0.034)
[2022-08-22 12:53] LABS: CKMB % Relative Index 0.2 % (1.5-5.0); Creatine Kinase MB < 0.22 ng/mL (<2.37)
[2022-08-22] MEDS: SODIUM CHLORIDE 0.9% 1,000 ML 1000 ML IV ×2 (13:07→14:17)
[2022-08-22] MEDS: PANTOPRAZOLE 40 MG VIAL IV (13:07)
[2022-08-22] MEDS: HYDROMORPHONE 1 MG INJ IV (15:23)
[2022-08-22] MEDS: METOCLOPRAMIDE 10 MG/2 ML INJ IV (15:23)
[2022-08-22 15:55] LABS: Lactate (Lactic Acid) 1.3 mmol/L (0.7-2.1)
--- NOTE | 2022-08-22 17:00 | PC.NURSE ---
Pt reports feeling like it's hard to catch my breath. Pt shaking, RR 30 and breathing out forcefully. Encouraged slow deep breaths to help pt calm down. Provider notified and immediately to bedside. Pt placed on end tidal to monitor. 1730: Pt sat intermittently dropping to 85-87% on room air, RR 9-10, Co2 25. Provider Giselle notified and orders for Narcan received.
[2022-08-22] MEDS: NALOXONE 0.4 MG/ML VIAL 0.2 MG IV (17:27)
== END 2022-08-22 19:36 | disposition home or self-care (01) ==
PROVIDERS: Emergency Medicine; Emergency Provider Student in an Organized Health Care Education/Training Program
DX: K86.2 Cyst of pancreas (principal); R10.10 Upper abdominal pain, unspecified; K21.9 Gastro-esophageal reflux disease without esophagitis
CPT/HCPCS: 36415; 71045; 74177; 80053; 81003; 82550; 82553; 83605; 83690; 84484; 85025; 85610; 93005; 93010; 96361; 96374; 96375; 96376; 99284; C9113; J1170; J2310; J2405; J2765; J3010

== ENCOUNTER 2022-10-06 13:02 | Emergency (ER) | payer OTHER, SELFPAY ==
[2022-10-06] VITALS (18 sets, daily range): BP systolic 120–150; BP diastolic 76–93; PULSE 70–99; RESP 16–28; TEMP 36.3; O2SAT 94–98; BMI 41.3
[2022-10-06 13:28] LABS: Add Manual Diff / Slide Review NO; Basophils Absolute Auto 0 /uL (0-100); Basophils Percent Auto 0.3 % (0-2); Eosinophils Absolute Auto 100 /uL (0-450); Eosinophils Percent Auto 1.2 % (2-4); Hematocrit 41.5 % (41-53); Hemoglobin 13.9 g/dL (13.5-17.5); Lymphocytes Absolute Auto 1000 /uL (1100-4500); Lymphocytes Percent Auto 13.8 % (25-40); Mean Corpuscular HGB Conc 33.6 % (30-36); Mean Corpuscular Hemoglobin 27.3 PG (26-34); Mean Corpuscular Volume 81.2 fL (80-100); Monocytes Absolute Auto 400 /uL (0-900); Monocytes Percent Auto 5.8 % (3-14); Neutrophils Absolute Auto 6000 /uL (1500-7000); Neutrophils Percent Auto 78.9 % (50-75); Platelet Count 137 X10^3/uL (150-400); Red Blood Cell Count 5.11 X10^6/uL (4.5-5.9); Red Cell Distribution Width 14.7 % (11.6-14.8); White Blood Cell Count 7.5 X10^3/uL (4.5-11.0)
[2022-10-06 13:43] LABS: Alanine Aminotransferase 45 IU/L (<50); Albumin 4.7 g/dL (3.5-5.0); Albumin Globulin Ratio 1.2 (1.0-2.8); Alkaline Phosphatase 73 U/L (38-126); Aspartate Aminotransferase 34 IU/L (17-59); BUN Creatinine Ratio 19.1 (6-22); Bilirubin Total 0.6 mg/dL (0.2-1.3); Blood Urea Nitrogen 17 mg/dL (9-20); Calcium 9.3 mg/dL (8.4-10.2); Carbon Dioxide 25 mmol/L (22-32); Chloride 102 mmol/L (98-107); Estimated Glomerular Filt Rate > 60 mL/min (>60); Glucose 92 mg/dL (70-100); HEMOLYSIS < 15 (0-50); Lipase 159 U/L (23-300); Sodium 137 mmol/L (137-145); Total Protein 8.7 g/dL (6.3-8.2)
--- NOTE | 2022-10-06 15:05 | DI.US.S_ITS ---
PROCEDURE: US ABDOMEN LIMITED INDICATIONS: RUQ PAIN TECHNIQUE: Real-time focused scanning was performed of the abdomen, with image documentation. COMPARISON: [facility], CT, CT ABDOMEN PELVIS W CON, 10/06/2022, 15:11. [facility], US, US ABDOMEN LIMITED, 05/06/2022, 13:32. FINDINGS: The liver demonstrates enlarged size. The liver demonstrates generalized moderately increased echogenicity. This decreases ultrasound sensitivity for detection of hepatic masses. There is limited evaluation of the left lobe of the liver. Sludge is seen within the gallbladder lumen. No shadowing stones are seen. The gallbladder wall is not thickened, measuring 3 mm or less. No specific pericholecystic fluid is seen. The sonographic Gilbert sign is negative. There is no biliary dilatation, the common bile duct measures 5 mm. The pancreas is not seen. The liver demonstrates increased echogenicity. This finding is nonspecific, yet it is most commonly attributed to fatty infiltration. IMPRESSION: Sludge is seen within the gallbladder, without additional sonographic signs of cholecystitis. No stones are seen. No biliary dilatation. Enlarged, echogenic liver. Dictated by: Donny Foster M.D. on 10/06/2022 at 15:03 Approved by: Donny Foster M.D. on 10/06/2022 at 15:04
--- NOTE | 2022-10-06 15:06 | DI.CT.S_ITS ---
PROCEDURE: CT ABDOMEN PELVIS W CON INDICATIONS: RUQ, epigastric pain, hx pancreatitis TECHNIQUE: After the administration of IV contrast, axial sections were acquired from the lung bases to the pubic symphysis. Coronal and sagittal reformats were performed. For radiation dose reduction, the following was used: automated exposure control, adjustment of mA and/or kV according to patient size. COMPARISON: [facility], CT, CT ABDOMEN PELVIS W CON, 08/22/2022, 13:08. FINDINGS: Image quality: Excellent. Lung bases: Unremarkable. Heart: No significant findings. ABDOMEN: Liver: Liver measures 17.2 cm with steatosis. Gallbladder: Unremarkable. Biliary ducts: Unremarkable. Pancreas: As noted on prior exam, there is mild peripancreatic stranding adjacent to the pancreatic tail with a focus of hypodensity within the tail measuring 8 mm. Overall appearance has not significantly changed. Spleen: Spleen is prominent measuring 15.4 cm. Adrenal Glands: Unremarkable. Kidneys and Ureters: Unremarkable. Stomach and Bowel: Stomach, small bowel loops, and colon are unremarkable. Appendix is normal. No right lower quadrant inflammatory change. Peritoneum: No abnormal intraperitoneal fluid. No free air. Ventral Wall: No hernia. Abdominal Nodes: No retroperitoneal or mesenteric adenopathy by size criteria. Vessels: Aorta and inferior vena cava are normal in size. PELVIS: Pelvic Organs: Unremarkable. Bladder: Unremarkable. Pelvic Nodes: No enlarged lymph nodes. Miscellaneous: No inguinal hernias are seen. Bones: Unremarkable. IMPRESSION: Persistent peripancreatic tail stranding with focal area of low attenuation within the tail parenchyma. Persistent low level pancreatitis cannot be excluded. The latter could represent a pseudocyst related to prior pancreatitis sequela. Dictated by: Radha Thapa M.D. on 10/06/2022 at 16:41 Approved by: Radha Thapa M.D. on 10/06/2022 at 16:44
--- NOTE | 2022-10-06 15:08 | ED_ITS ---
HPI - Abdominal Pain <Be Chin PA-C - Last Filed: 10/06/22 19:39> General Chief Complaint: Abdominal Pain Stated Complaint: abd pain getting worse RIVAS pancreatitis Time Seen by Provider: 10/06/22 13:54 Source: patient Mode of arrival: Ambulatory History of Present Illness HPI narrative: 32-year-old male with past medical history pancreatitis, GERD presents to the ED with 1 day of right upper quadrant and epigastric pain. Patient's pain started spontaneously this morning after he had a bowel movement, intensified to 9/10 pain which brought him to the ED. The bowel movement was normal. Patient denies fever, chills, chest pain, shortness of breath, nausea, vomiting, diarrhea, dysuria, lightheadedness, dizziness, syncope. Patient was seen in the ED on 10/03/2022, diagnosed and treated for GERD. Patient has been seen twice over the last 6 [address]s indicating possible pancreatitis. Patient de nies alcohol use. Patient denies history of gallstones or gallbladder disease. Last abdominal ultrasound was on 05/06/2022 without acute findings. Patient is scheduled to see a fiberglass quality technician on November 10. Related Data Previous Rx's Medication Instructions Recorded omeprazole 20 mg capsule,delayed 20 mg PO DAILY #14 caps 08/22/22 release ondansetron 4 mg disintegrating 4 mg PO Q8H PRN nausea and 08/22/22 tablet vomiting 10 days #30 tabs ondansetron 4 mg disintegrating 4 mg PO Q8H PRN nausea and 10/06/22 tablet vomiting #30 tabs lipase 4,200-protease 3 cap PO TID #90 caps 10/20/22 14,200-amylase 24,600 unit capsule,delayed rel (Pancreaze) Allergies Allergy/AdvReac Type Severity Reaction Status Date / Time No Known Drug Allergies Allergy Verified 10/06/22 13:04 Review of Systems <Be Chin PA-C - Last Filed: 10/06/22 19:39> Review of Systems ROS Unobtainable: All systems reviewed & are unremarkable except as noted in HPI and below Constitutional Constitutional: Denies chills, Denies fatigue, Denies fever(s), Denies frequent falls, Denies lethargy and Denies weakness Eyes Eyes: Denies change in vision, Denies eye discharge, Denies irritation and Denie s loss of vision ENT Ears, Nose, Mouth, and Throat: Denies change in voice, Denies dizziness, Denies neck pain, Denies sore throat and Denies throat swelling Cardiovascular Cardiovascular: Denies chest pain, Denies irregular heart rhythm, Denies lightheadedness, Denies palpitations, Denies dyspnea, Denies dyspnea on exertion and Denies orthopnea Respiratory Respiratory: Denies cough, Denies dyspnea, Denies dyspnea on exertion and Denies wheezing Gastrointestinal Gastrointestinal: Reports abdominal pain, Denies change in bowel habits, Denies diarrhea, Reports nausea and Denies vomiting Genitourinary Genitourinary: Denies hematuria, Denies flank pain, Denies urinary incontinence and Denies urinary urgency Musculoskeletal Musculoskeletal: Denies back pain, Denies muscle weakness, Denies neck pain, Denies numbness and Denies tingling Integumentary/Breasts Skin/Breast: Denies pruritus, Denies erythema, Denies rash and Denies wounds Neurologic Neurologic: Denies behavioral changes, Denies confusion, Denies dizziness, Denies frequent falls, Denies loss of vision, Denies numbness, Denies tingling and Denies weakness Psychiatric Psychiatric: Denies anxiety, Denies behavioral changes, Denies confusion, Denies depression, Denies homicidal ideation and Denies suicidal ideation Endocrine Endocrine: Denies fatigue, Denies flushing and Denies palpitations Hematologic/Lymphatic Hematologic/Lymphatic: Denies easy bruising Allergic/Immunologic Allergic/Immunologic: Denies urticaria, Denies throat swelling and Denies wheezing Patient History <Be Chin PA-C - Last Filed: 10/06/22 19:39> Medical History (Updated 10/21/22 @ 00:00 by ) Pancreatic pseudocyst/cyst Social History Smoking Status: Unknown if ever smoked Smoking Status: Unknown if ever smoked alcohol intake frequency: holidays/special occasions only Substance Use Type: does not use Exam <Be Chin PA-C - Last Filed: 10/06/22 19:39> Narrative Exam Narrative: Const General:?cooperative, healthy appearing and comfortable HENAK Head:?normal to inspection Ears:?hearing grossly normal bilaterally Nose:?external nose normal Face and sinus:?normal facial exam and sinuses nontender Mouth:?oral mucosae normal Throat:?posterior oropharynx normal Eyes General:?appearance normal, both eyes and all related structures Neck Neck:?normal visual inspection and no lymphadenopathy noted Resp Effort & Inspection:?normal respiratory effort Auscultation:?clear to auscultation bilaterally Cardio Rate:?regular rate Rhythm:?regular rhythm GI Abdomen is soft, nondistended, tender to palpation in the epigastric region. Neuro General:?patient alert, patient awake and patient oriented x3 Initial Vital Signs Initial Vital Signs: Vital Signs Temperature 97.4 F L 10/06/22 13:04 Pulse Rate 89 10/06/22 13:04 Respiratory Rate 18 10/06/22 13:04 Blood Pressure 143/93 H 10/06/22 13:04 Pulse Oximetry 98 10/06/22 13:04 Oxygen Delivery Method Room Air 10/06/22 13:04 <Jody Desai DO - Last Filed: 10/21/22 03:28> Initial Vital Signs Initial Vital Signs: Vital Signs Temperature 97.4 F L 10/06/22 13:04 Pulse Rate 89 10/06/22 13:04 Respiratory Rate 18 10/06/22 13:04 Blood Pressure 143/93 H 10/06/22 13:04 Pulse Oximetry 98 10/06/22 13:04 Oxygen Delivery Method Room Air 10/06/22 13:04 Course <Be Chin PA-C - Last Filed: 10/06/22 19:39> Orders Ordered: Discontinued Medications Acetaminophen (Acetaminophen 325 Mg Tablet) 975 mg PO NOW ONE Stop: 10/06/22 18:41 Last Admin: 10/06/22 18:49 Dose: 975 mg Documented By: BS Sodium Chloride (Normal Saline 0.9%) 1,000 mls @ 1,000 mls/hr IV BOLUS ONE Stop: 10/06/22 18:18 Last Infusion: 10/06/22 19:07 Dose: 0 mls/hr Documented By: Admin: 10/06/22 17:33 Dose: 1,000 mls/hr Documented By: AT Morphine Sulfate (Morphine 4 Mg/Ml Inj) 4 mg IV NOW ONE Stop: 10/06/22 15:05 Last Admin: 10/06/22 15:17 Dose: 4 mg Documented By: AT Morphine Sulfate (Morphine 4 Mg/Ml Inj) 4 mg IV NOW ONE Stop: 10/06/22 17:20 Last Admin: 10/06/22 17:33 Dose: 4 mg Documented By: AT Ondansetron HCl (Ondansetron 4 Mg/2 Ml Inj) 4 mg IV NOW PRN PRN Reason: Nausea And Vomiting Last Admin: 10/06/22 15:30 Dose: 4 mg Documented By: AT Ondansetron HCl (Ondansetron 4 Mg/2 Ml Inj) 4 mg IV NOW ONE Stop: 10/06/22 18:52 Last Admin: 10/06/22 19:15 Dose: 4 mg Documented By: AT Oxycodone/Acetaminophen (Oxycodone/Acetaminophen 5/325 Tablet) 1 tab PO NOW ONE Stop: 10/06/22 18:38 Last Admin: 10/06/22 19:01 Dose: Not Given Documented By: AT Vital Signs Vital signs: Vital Signs - 8 hr 10/06/22 13:04 10/06/22 13:35 10/06/22 14:00 Temperature 97.4 F L Pulse Rate 89 89 70 Respiratory Rate 18 16 Blood Pressure 143/93 H Pulse Oximetry 98 98 97 Oxygen Delivery Method Room Air Room Air 10/06/22 14:22 10/06/22 14:22 10/06/22 14:30 Temperature Pulse Rate 88 84 Respiratory Rate 24 18 Blood Pressure 122/90 Pulse Oximetry 98 97 Oxygen Delivery Method 10/06/22 15:00 10/06/22 15:28 10/06/22 15:28 Temperature Pulse Rate 83 86 Respiratory Rate 16 20 Blood Pressure 120/88 Pulse Oximetry 98 95 Oxygen Delivery Method Room Air 10/06/22 15:30 10/06/22 15:30 10/06/22 16:00 Temperature Pulse Rate 84 Respiratory Rate 16 Blood Pressure 123/92 H 131/76 Pulse Oximetry 96 Oxygen Delivery Method 10/06/22 16:00 10/06/22 16:30 10/06/22 16:30 Temperature Pulse Rate 78 79 Respiratory Rate 18 16 Blood Pressure 125/77 Pulse Oximetry 94 94 Oxygen Delivery Method Room Air 10/06/22 17:05 10/06/22 17:30 10/06/22 18:00 Temperature Pulse Rate 90 83 99 H Respiratory Rate 16 28 H Blood Pressure Pulse Oximetry 97 96 95 Oxygen Delivery Method 10/06/22 18:30 10/06/22 19:00 Temperature Pulse Rate 79 91 H Respiratory Rate 16 17 Blood Pressure Pulse Oximetry 95 94 Oxygen Delivery Method Room Air <Jody Desai DO - Last Filed: 10/21/22 03:28> Orders Ordered: Discontinued Medications Acetaminophen (Acetaminophen 325 Mg Tablet) 975 mg PO NOW ONE Stop: 10/06/22 18:41 Last Admin: 10/06/22 18:49 Dose: 975 mg Documented By: BS Sodium Chloride (Normal Saline 0.9%) 1,000 mls @ 1,000 mls/hr IV BOLUS ONE Stop: 10/06/22 18:18 Last Infusion: 10/06/22 19:07 Dose: 0 mls/hr Documented By: Admin: 10/06/22 17:33 Dose: 1,000 mls/hr Documented By: AT Morphine Sulfate (Morphine 4 Mg/Ml Inj) 4 mg IV NOW ONE Stop: 10/06/22 15:05 Last Admin: 10/06/22 15:17 Dose: 4 mg Documented By: AT Morphine Sulfate (Morphine 4 Mg/Ml Inj) 4 mg IV NOW ONE Stop: 10/06/22 17:20 Last Admin: 10/06/22 17:33 Dose: 4 mg Documented By: AT Ondansetron HCl (Ondansetron 4 Mg/2 Ml Inj) 4 mg IV NOW PRN PRN Reason: Nausea And Vomiting Last Admin: 10/06/22 15:30 Dose: 4 mg Documented By: AT Ondansetron HCl (Ondansetron 4 Mg/2 Ml Inj) 4 mg IV NOW ONE Stop: 10/06/22 18:52 Last Admin: 10/06/22 19:15 Dose: 4 mg Documented By: AT Oxycodone/Acetaminophen (Oxycodone/Acetaminophen 5/325 Tablet) 1 tab PO NOW ONE Stop: 10/06/22 18:38 Last Admin: 10/06/22 19:01 Dose: Not Given Documented By: AT Vital Signs Vital signs: Vital Signs - 8 hr 10/06/22 13:04 10/06/22 13:35 10/06/22 14:00 Temperature 97.4 F L Pulse Rate 89 89 70 Respiratory Rate 18 16 Blood Pressure 143/93 H Pulse Oximetry 98 98 97 Oxygen Delivery Method Room Air Room Air 10/06/22 14:22 10/06/22 14:22 10/06/22 14:30 Temperature Pulse Rate 88 84 Respiratory Rate 24 18 Blood Pressure 122/90 Pulse Oximetry 98 97 Oxygen Delivery Method 10/06/22 15:00 10/06/22 15:28 10/06/22 15:28 Temperature Pulse Rate 83 86 Respiratory Rate 16 20 Blood Pressure 120/88 Pulse Oximetry 98 95 Oxygen Delivery Method Room Air 10/06/22 15:30 10/06/22 15:30 10/06/22 16:00 Temperature Pulse Rate 84 Respiratory Rate 16 Blood Pressure 123/92 H 131/76 Pulse Oximetry 96 Oxygen Delivery Method 10/06/22 16:00 10/06/22 16:30 10/06/22 16:30 Temperature Pulse Rate 78 79 Respiratory Rate 18 16 Blood Pressure 125/77 Pulse Oximetry 94 94 Oxygen Delivery Method Room Air 10/06/22 17:05 10/06/22 17:30 10/06/22 18:00 Temperature Pulse Rate 90 83 99 H Respiratory Rate 16 28 H Blood Pressure Pulse Oximetry 97 96 95 Oxygen Delivery Method 10/06/22 18:30 10/06/22 19:00 Temperature Pulse Rate 79 91 H Respiratory Rate 16 17 Blood Pressure Pulse Oximetry 95 94 Oxygen Delivery Method Room Air MDM - Abdominal Pain <Be Chin PA-C - Last Filed: 10/06/22 19:39> Lab Data 10/06/22 13:17 10/06/22 13:17 Labs: Lab Results 10/06/22 10/06/22 Range/Units 13:17 13:17 WBC 7.5 (4.5-11.0) X10^3/uL RBC 5.11 (4.5-5.9) X10^6/uL Hgb 13.9 (13.5-17.5) g/dL Hct 41.5 (41-53) % MCV 81.2 (80-100) fL MCH 27.3 (26-34) PG MCHC 33.6 (30-36) % RDW 14.7 (11.6-14.8) % Plt Count 137 L (150-400) X10^3/uL Neut % (Auto) 78.9 H (50-75) % Lymph % (Auto) 13.8 L (25-40) % [place] % (Auto) 5.8 (3-14) % Eos % (Auto) 1.2 L (2-4) % Baso % (Auto) 0.3 (0-2) % Neut # (Auto) 6000 (2021-9413) /uL Lymph # (Auto) 1000 L (2022-2624) /uL [place] # (Auto) 400 (0-900) /uL Eos # (Auto) 100 (0-450) /uL Baso # (Auto) 0 (0-100) /uL Sodium 137 (137-145) mmol/L Potassium 4.0 (3.4-5.1) mmol/L Chloride 102 (98-107) mmol/L Carbon Dioxide 25 (22-32) mmol/L BUN 17 (9-20) mg/dL Creatinine 0.89 (0.66-1.25) mg/dL Estimated GFR > 60 (>60) mL/min BUN/Creatinine Ratio 19.1 (6-22) Glucose 92 (70-100) mg/dL Calcium 9.3 (8.4-10.2) mg/dL Total Bilirubin 0.6 (0.2-1.3) mg/dL AST 34 (17-59) IU/L ALT 45 (<50) IU/L Alkaline Phosphatase 73 (38-126) U/L Total Protein 8.7 H (6.3-8.2) g/dL Albumin 4.7 (3.5-5.0) g/dL Globulin 4.0 (1.7-4.1) g/dL Albumin/Globulin Ratio 1.2 (1.0-2.8) Lipase 159 (23-300) U/L Point of care testing: Urine Dip Bedside Urine Glucose Negative Bedside Urine Bilirubin - Negative Bedside Urine Ketone - Negative Urine Specific [place] 1.020 Bedside Urine Occult Blood - Negative Bedside Urine pH 6.0 Bedside Urine Protein - Negative Bedside Urine Urobilinogen - Negative Bedside Urine Nitrite - Negative Bedside Urine Leukocytes - Negative Esterase MDM Narrative Medical decision making narrative: 32-year-old male with past medical history pancreatitis, GERD presents to the ED with 1 day of right upper quadrant and epigastric pain. Concern for pancreat itis versus gallbladder disease versus GERD versus gastritis versus gastroenteritis versus UTI versus pyelonephritis versus other intra-abdominal pathology. Will obtain labs, lipase, CT abdomen pelvis, ultrasound RUQ. Will give Zofran, IV fluids, Toradol. Will reassess. CT read as follows: Persistent peripancreatic tail stranding with focal area of low attenuation within the tail parenchyma.? Persistent low level pancreatitis cannot be excluded.? The latter could represent a pseudocyst related to prior pancreatitis sequela. Lipase within normal limits. All other labs within normal limits. Patient was also given some morphine and Tylenol for further pain control. Patient's sy mptoms improved with pain control and Zofran. Discussed findings with patient. Patient has a GI appointment for November 10. Patient agrees to keep the GI follow- up appointment. Recommend clear liquid diet for the next 2 days, slowly advancing diet as tolerable. Recommend Tylenol, ibuprofen for pain control. Discussed keeping a low-fat diet. ED return precautions were discussed with patient. Patient verbalized understanding. Medical records reviewed: Yes <Jody Desai DO - Last Filed: 10/21/22 03:28> Lab Data Labs: Lab Results 10/06/22 10/06/22 Range/Units 13:17 13:17 WBC 7.5 (4.5-11.0) X10^3/uL RBC 5.11 (4.5-5.9) X10^6/uL Hgb 13.9 (13.5-17.5) g/dL Hct 41.5 (41-53) % MCV 81.2 (80-100) fL MCH 27.3 (26-34) PG MCHC 33.6 (30-36) % RDW 14.7 (11.6-14.8) % Plt Count 137 L (150-400) X10^3/uL Neut % (Auto) 78.9 H (50-75) % Lymph % (Auto) 13.8 L (25-40) % [place] % (Auto) 5.8 (3-14) % Eos % (Auto) 1.2 L (2-4) % Baso % (Auto) 0.3 (0-2) % Neut # (Auto) 6000 (8449-1859) /uL Lymph # (Auto) 1000 L (5198-5193) /uL [place] # (Auto) 400 (0-900) /uL Eos # (Auto) 100 (0-450) /uL Baso # (Auto) 0 (0-100) /uL Sodium 137 (137-145) mmol/L Potassium 4.0 (3.4-5.1) mmol/L Chloride 102 (98-107) mmol/L Carbon Dioxide 25 (22-32) mmol/L BUN 17 (9-20) mg/dL Creatinine 0.89 (0.66-1.25) mg/dL Estimated GFR > 60 (>60) mL/min BUN/Creatinine Ratio 19.1 (6-22) Glucose 92 (70-100) mg/dL Calcium 9.3 (8.4-10.2) mg/dL Total Bilirubin 0.6 (0.2-1.3) mg/dL AST 34 (17-59) IU/L ALT 45 (<50) IU/L Alkaline Phosphatase 73 (38-126) U/L Total Protein 8.7 H (6.3-8.2) g/dL Albumin 4.7 (3.5-5.0) g/dL Globulin 4.0 (1.7-4.1) g/dL Albumin/Globulin Ratio 1.2 (1.0-2.8) Lipase 159 (23-300) U/L Point of care testing: Urine Dip Bedside Urine Glucose Negative Bedside Urine Bilirubin - Negative Bedside Urine Ketone - Negative Urine Specific [place] 1.020 Bedside Urine Occult Blood - Negative Bedside Urine pH 6.0 Bedside Urine Protein - Negative Bedside Urine Urobilinogen - Negative Bedside Urine Nitrite - Negative Bedside Urine Leukocytes - Negative Esterase Discharge Plan Departure Patient Disposition: Home Clinical Impression: Pancreatitis Instructions: DI for Pancreatitis Activity Restrictions/Additional Instructions: You were evaluated in the ED today for abdominal pain. Your CT shows a persistent inflammation of your pancreas with a possible pseudocyst, similar to the CT you had in August. It is recommended that you follow a clear fluid diet for the next 2 days, gradually advance your diet from there for comfort. You may continue to take Tylenol and ibuprofen for the discomfort. Please stay well hydrated. You are being prescribed Zofran for nausea. Please see your fiberglass quality technician as scheduled for November 10 for further evaluation. Return to the ED if you are unable to keep down fluids, you are persistently vomiting, your abdominal pain worsens. Prescriptions: New ondansetron 4 mg tablet,disintegrating 4 mg PO Q8H PRN (Reason: nausea and vomiting) Qty: 30 0RF No Action ondansetron 4 mg tablet,disintegrating 4 mg PO Q8H PRN (Reason: nausea and vomiting) 10 Days Qty: 30 1RF omeprazole 20 mg capsule,delayed release(DR/EC) 20 mg PO DAILY Qty: 14 0RF Pancreaze 4,200-14,200- 24,600 unit capsule,delayed release(DR/EC) 3 cap PO TID Qty: 90 0RF Rx Instructions: do not exceed 10,000 unit/kg lipase per 24 hrs Referrals: ProviderRhona [Primary Care Provider] - Stand Alone Forms: Patient Portal/API <Jody Desai DO - Last Filed: 10/21/22 03:28> Cosign ED Attending Cosignature Attestation: I was immediately available in the department for consultation. Documentation has been reviewed.
[2022-10-06] MEDS: MORPHINE 4 MG/ML INJ IV ×2 (15:17→17:33)
[2022-10-06] MEDS: ONDANSETRON 4 MG/2 ML INJ IV ×2 (15:30→19:15)
[2022-10-06] MEDS: SODIUM CHLORIDE 0.9% 1,000 ML 1000 ML IV (17:33)
[2022-10-06] MEDS: ACETAMINOPHEN 325 MG TABLET 975 MG PO (18:49)
== END 2022-10-06 19:57 | disposition home or self-care (01) ==
PROVIDERS: Emergency Medicine; Emergency Provider Student in an Organized Health Care Education/Training Program
DX: K85.90 Acute pancreatitis without necrosis or infection, unspecified (principal)
CPT/HCPCS: 36415; 74177; 76705; 80053; 81003; 83690; 85025; 96361; 96374; 96375; 96376; 99284; J2270; J2405; Q9967

== ENCOUNTER 2022-10-19 21:34 | Emergency (ER) | payer OTHER, SELFPAY ==
[2022-10-19 21:44] VITALS: BP 137/90; PULSE 80; RESP 18; TEMP 36.6; O2SAT 98; BMI 41.3
[2022-10-19 22:09] LABS: Add Manual Diff / Slide Review NO; Basophils Absolute Auto 0 /uL (0-100); Basophils Percent Auto 0.7 % (0-2); Eosinophils Absolute Auto 100 /uL (0-450); Eosinophils Percent Auto 1.6 % (2-4); Hematocrit 39.3 % (41-53); Hemoglobin 13.4 g/dL (13.5-17.5); Lymphocytes Absolute Auto 1600 /uL (1100-4500); Lymphocytes Percent Auto 31.2 % (25-40); Mean Corpuscular HGB Conc 34.2 % (30-36); Monocytes Absolute Auto 400 /uL (0-900); Monocytes Percent Auto 8.1 % (3-14); Neutrophils Absolute Auto 2900 /uL (1500-7000); Neutrophils Percent Auto 58.4 % (50-75); Platelet Count 120 X10^3/uL (150-400); Red Blood Cell Count 4.98 X10^6/uL (4.5-5.9); Red Cell Distribution Width 14.8 % (11.6-14.8)
[2022-10-19 22:18] LABS: Alanine Aminotransferase 29 IU/L (<50); Albumin 4.5 g/dL (3.5-5.0); Albumin Globulin Ratio 1.2 (1.0-2.8); Alkaline Phosphatase 75 U/L (38-126); Aspartate Aminotransferase 22 IU/L (17-59); BUN Creatinine Ratio 14.3 (6-22); Bilirubin Total 0.5 mg/dL (0.2-1.3); Blood Urea Nitrogen 13 mg/dL (9-20); Calcium 9.1 mg/dL (8.4-10.2); Carbon Dioxide 26 mmol/L (22-32); Chloride 105 mmol/L (98-107); Estimated Glomerular Filt Rate > 60 mL/min (>60); Globulin 3.8 g/dL (1.7-4.1); Glucose 87 mg/dL (70-100); HEMOLYSIS < 15 (0-50); Lipase 196 U/L (23-300); Potassium 4.2 mmol/L (3.4-5.1); Sodium 139 mmol/L (137-145); Total Protein 8.3 g/dL (6.3-8.2)
--- NOTE | 2022-10-20 04:14 | ED.GENADULT ---
HPI - General Adult General Chief complaint: Abdominal Pain Stated complaint: ABD. 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 He notes that over the ensuing weeks he has significantly limited his diet however he is not lost any weight. He states that he eats to inefficient lunch and chicken with green beans at night and not much else. He strain from that diet and had chicken McNuggets on Wednesday which exacerbated his pain. He has been unable to get comfortable at home he has ibuprofen, Tylenol Zofran if needed for nausea. He has a follow-up appointment with his primary care doctor next week and with a patient registration clerk in mid November. Frustrated with the continued pain and wondering if he is getting worse and what other options there might be for him. He is describing no fevers, vomiting, diarrhea. Notes minimal amounts of stool that correlates with decreased overall intake. Related Data Previous Rx's Medication Instructions Recorded omeprazole 20 mg capsule,delayed 20 mg PO DAILY #14 caps 08/22/22 release ondansetron 4 mg disintegrating 4 mg PO Q8H PRN nausea and 08/22/22 tablet vomiting 10 days #30 tabs ondansetron 4 mg disintegrating 4 mg PO Q8H PRN nausea and 10/06/22 tablet vomiting #30 tabs lipase 4,200-protease 3 cap PO TID #90 caps 10/20/22 14,200-amylase 24,600 unit capsule,delayed rel (Pancreaze) Allergies Allergy/AdvReac Type Severity Reaction Status Date / Time No Known Drug Allergies Allergy Verified 10/06/22 13:04 Review of Systems Review of Systems Narrative: Pertinent positive and negative findings as per HPI Patient History Medical History (Updated 10/20/22 @ 05:57 by Krystin Gomez MD) Pancreatic pseudocyst/cyst Social History Smoking Status: Unknown if ever smoked Smoking Status: Unknown if ever smoked alcohol intake frequency: holidays/special occasions only Substance Use Type: does not use Exam Initial Vital Signs Initial Vital Signs: Vital Signs Temperature 98 F 10/19/22 21:44 Pulse Rate 80 10/19/22 21:44 Respiratory Rate 18 10/19/22 21:44 Blood Pressure 137/90 10/19/22 21:44 Pulse Oximetry 98 10/19/22 21:44 Oxygen Delivery Method Room Air 10/19/22 21:44 General: Healthy appearing, BMI of 41, in no acute distress. Able to give a complete and coherent history. Well-nourished well-developed HEENT: Moist mucous membranes, normal sclera with reactive pupils Respiratory: Lungs are clear to auscultation, no wheezing no rales no rhonchi. Full and symmetrical air movement Cardiac: Regular rate and rhythm no murmurs no bruits Abdomen: Soft, mild tenderness in the left upper quadrant, no rebound or guarding, good bowel tones, no flank pain Skin: Warm and dry, no rashes Neurologic: Grossly neurologically intact with no obvious asymmetries or abnormalities Extremities: No trauma, well perfused Psych: Cooperative, appropriate insight and affect Course Orders Ordered: ED Orders 10/19/22 21:55 Complete Blood Count AUTO DIFF Stat Comprehensive Metabolic Panel Stat Lipase Stat Ondansetron HCl (Ondansetron 4 Mg Odt) 4 mg PO NOW PRN PRN Reason: Nausea And Vomiting Ondansetron HCl (Ondansetron 4 Mg/2 Ml Inj) 4 mg IV NOW PRN PRN Reason: Nausea And Vomiting Vital Signs Vital signs: Vital Signs - 8 hr 10/19/22 21:44 Temperature 98 F Pulse Rate 80 Respiratory Rate 18 Blood Pressure 137/90 Pulse Oximetry 98 Oxygen Delivery Method Room Air Medical Decision Making Lab Data 10/19/22 21:55 10/19/22 21:55 Labs: Lab Results 10/19/22 10/19/22 Range/Units 21:55 21:55 WBC 5.0 (4.5-11.0) X10^3/uL RBC 4.98 (4.5-5.9) X10^6/uL Hgb 13.4 L (13.5-17.5) g/dL Hct 39.3 L (41-53) % MCV 79.0 L (80-100) fL MCH 27.0 (26-34) PG MCHC 34.2 (30-36) % RDW 14.8 (11.6-14.8) % Plt Count 120 L (150-400) X10^3/uL Neut % (Auto) 58.4 (50-75) % Lymph % (Auto) 31.2 (25-40) % [place] % (Auto) 8.1 (3-14) % Eos % (Auto) 1.6 L (2-4) % Baso % (Auto) 0.7 (0-2) % Neut # (Auto) 2900 (6682-3891) /uL Lymph # (Auto) 1600 (3257-3434) /uL [place] # (Auto) 400 (0-900) /uL Eos # (Auto) 100 (0-450) /uL Baso # (Auto) 0 (0-100) /uL Sodium 139 (137-145) mmol/L Potassium 4.2 (3.4-5.1) mmol/L Chloride 105 (98-107) mmol/L Carbon Dioxide 26 (22-32) mmol/L BUN 13 (9-20) mg/dL Creatinine 0.91 (0.66-1.25) mg/dL Estimated GFR > 60 (>60) mL/min BUN/Creatinine Ratio 14.3 (6-22) Glucose 87 (70-100) mg/dL Calcium 9.1 (8.4-10.2) mg/dL Total Bilirubin 0.5 (0.2-1.3) mg/dL AST 22 (17-59) IU/L ALT 29 (<50) IU/L Alkaline Phosphatase 75 (38-126) U/L Total Protein 8.3 H (6.3-8.2) g/dL Albumin 4.5 (3.5-5.0) g/dL Globulin 3.8 (1.7-4.1) g/dL Albumin/Globulin Ratio 1.2 (1.0-2.8) Lipase 196 (23-300) U/L Urine Dip Bedside Urine Glucose Negative Bedside Urine Bilirubin - Negative Bedside Urine Ketone - Negative Urine Specific [place] 1.025 Bedside Urine Occult Blood - Negative Bedside Urine pH 6.0 Bedside Urine Protein - Negative Bedside Urine Urobilinogen - Negative Bedside Urine Nitrite - Negative Bedside Urine Leukocytes - Negative Esterase Point of care testing: Urine Dip Bedside Urine Glucose Negative Bedside Urine Bilirubin - Negative Bedside Urine Ketone - Negative Urine Specific [place] 1.025 Bedside Urine Occult Blood - Negative Bedside Urine pH 6.0 Bedside Urine Protein - Negative Bedside Urine Urobilinogen - Negative Bedside Urine Nitrite - Negative Bedside Urine Leukocytes - Negative Esterase MDM Narrative Medical decision making narrative: CC: Left upper quadrant pain Complicating co-morbidities: Prior episodes of pancreatitis with known 8 mm cyst in the tail of his pancreas, BMI of 41, Data collected from: patient, Medical records reviewed: Recent pancreatitis hospitalizations, CT scans, labs and most recent ER evaluation for recurrent pain are all reviewed Differential considered: Acute pancreatitis, ruptured pancreatic pseudocyst, constipation, viral syndrome Exam documented above, pertinent findings include: Mild left upper quadrant pain Lab Test results independently reviewed as above. Pertinent findings: White blood cell count is unremarkable Chemistries are unremarkable Lipase is normal Imaging studies independently reviewed: From CT scan on 10/06/22 As noted on prior exam, there is mild peripancreatic stranding adjacent to the pancreatic tail with a focus of hypodensity within the tail measuring 8 mm. Overall appearance has not significantly changed. Discussion: 32-year-old gentleman with continued pancreatitis/pancreatic pseudocyst pain. States that he has been significantly limiting oral intake trying liquid diet however he also notes that he has not lost any weight over this number of months. He has been using ibuprofen and Tylenol. We did talk about the problems with using narcotics to treat chronic pain and how that was not only ineffective but significantly high risk for leaving to addiction issues. Again reviewed the importance of trying to adhere to a full liquid diet for 2-3 days to reduce some of the overall pain. Also consider the option of pancreatic enzymes when he does eat to see if this might make any difference whatsoever in reducing his pain. Prescription was given to have him try this if it helps than he has an option to add to the arsenal of ibuprofen and Tylenol. If it does not help it also does not have any significant side effects. Encouraged him to follow up with his primary care and gastroenterology providers. He is safe for discharge home at this time Discharge Plan Departure Patient Disposition: Home Clinical Impression: Pancreatic pseudocyst/cyst Activity Restrictions/Additional Instructions: Thank you for coming in today I am sorry that you are still suffering with pain from this pancreatic pseudocyst. The CT scan from 2 weeks ago shows a small, 8 mm in diameter, cyst at the tail of your pancreas with some mild inflammation. Your lab work from today does not show significant elevation of lipase or white blood cell count to suggest infection. Doing as much as you can to give your pancreas a rest which means additional days of clear liquid diet, minimal sugar, you may find the broth is helpful with suppressing her appetite and does not seem to irritate your pancreas. When you do begin to eat again I am going to suggest that you try taking pancreatic enzymes each time that you eat. I do not know that this will definitively help but it certainly isn't going to hurt and if it is something that makes a difference than it can prove useful. [place] Please keep your appointments with your primary care doctor as well as the patient registration clerk scheduled in November. Using 400 mg of ibuprofen (2 [id number] pills) and 1 Tylenol every 6 hours can be very helpful in controlling pain. Prescriptions: New Pancreaze 4,200-14,200- 24,600 unit capsule,delayed release(DR/EC) 3 cap PO TID Qty: 90 0RF Rx Instructions: do not exceed 10,000 unit/kg lipase per 24 hrs No Action ondansetron 4 mg tablet,disintegrating 4 mg PO Q8H PRN (Reason: nausea and vomiting) Qty: 30 0RF ondansetron 4 mg tablet,disintegrating 4 mg PO Q8H PRN (Reason: nausea and vomiting) 10 Days Qty: 30 1RF omeprazole 20 mg capsule,delayed release(DR/EC) 20 mg PO DAILY Qty: 14 0RF Referrals: ProviderRhona [Primary Care Provider] - Stand Alone Forms: Patient Portal/API
[2022-10-20] MEDS: SODIUM CHLORIDE 0.9% 1,000 ML 1000 ML IV (05:16)
[2022-10-20 05:58] VITALS: BP 136/84; PULSE 78; RESP 16; O2SAT 98
== END 2022-10-20 05:59 | disposition home or self-care (01) ==
PROVIDERS: Emergency Provider Emergency Medicine
DX: K86.2 Cyst of pancreas (principal); R07.9 Chest pain, unspecified
CPT/HCPCS: 36415; 80053; 81003; 83690; 85025; 96360; 99284